=== PATIENT | female | born 1930 | race Caucasian/White ===

== ENCOUNTER 2017-09-28 16:00 | Outpatient (CLI) | payer MEDICARE, OTHER | END 2017-09-28 16:01 | disposition home or self-care (01) | LOC: BICMAMMO 16:00 | PROVIDERS: ATTEND Internal Medicine | DX: Z12.31 Encounter for screening mammogram for malignant neoplasm of breast (principal) | CPT/HCPCS: 77063 ==

== ENCOUNTER 2017-11-08 20:29 | Emergency (ER) | payer MEDICARE ==
--- NOTE | 2017-11-08 21:12 | RAD ---
CHEST TWO VIEWS: History: Cough. Comparison: 06-10-17 FINDINGS: Lungs are clear. No pneumothorax or effusion. Cardiac silhouette and mediastinal contour is within no rmal limits. Mild reversed S-shaped scoliosis of the thoracic spine. IMPRESSION: No acute intrathoracic abnormality. POS: [facility] [place]
== END 2017-11-08 21:38 | disposition home or self-care (01) ==
LOC: SCSER 20:29
DX: J32.9 Chronic sinusitis, unspecified (principal); K51.90 Ulcerative colitis, unspecified, without complications; K21.9 Gastro-esophageal reflux disease without esophagitis; I10 Essential (primary) hypertension; M19.90 Unspecified osteoarthritis, unspecified site; F41.9 Anxiety disorder, unspecified
CPT/HCPCS: 71046

== ENCOUNTER 2018-02-12 20:28 | Emergency (ER) | payer MEDICARE ==
[2018-02-12 21:00] LABS: #Monocytes 0.4 thou/uL (0.11-0.59); #Neutrophils 11.2 thou/uL (1.40-6.50); %Basophils 0.2 % (0.0-1.0); %Eosinophils 0.1 % (0.0-10.0); %Lymphocytes 14.4 % (21.0-51.0); %Monocytes 2.8 % (0.0-10.0); %Neutrophils 82.5 % (42.0-75.0); Hemoglobin 11.6 g/dL (12.0-16.0); Mean Corpuscular HGB CONC 33.6 g/dL (32.0-36.0); Mean Corpuscular Hemoglobin 30.2 pg (27.0-31.0); Mean Corpuscular Volume 89.9 fl (81.0-99.0); Mean Platelet Volume 7.5 fL (7.4-10.4); Platelet Count 196 thou/uL (130-400); RBC Distribution Width 14.4 % (11.5-14.5); Red Blood Cell (RBC) Count 3.83 mill/uL (4.20-5.40); White Blood Cell (WBC) Count 13.6 thou/uL (4.8-10.8)
[2018-02-12 21:16] LABS: ALT (SGPT) 27 U/L (8-55); AST (SGOT) 16 U/L (5-34); Albumin 3.1 g/dL (3.4-4.8); Alkaline Phosphatase 94 U/L (40-150); Anion Gap 15 mmol/L (10-20); BUN (Urea Nitrogen) 31 mg/dL (9.8-20.1); Bilirubin, Total 0.3 mg/dL (0.2-1.2); CK (CPK) 72 U/L (29-168); CKMB 1.3 ng/mL (0-6.6); Calc. Creatinine Clearance 0 mL/min (70-130); Calcium 8.7 mg/dL (7.8-10.44); Carbon Dioxide 24 mmol/L (23-31); Chloride 105 mmol/L (98-107); Estimated GFR-MDRD 44; Globulin 2.9 g/dL (2.4-3.5); Glucose 129 mg/dL (83-110); Lipase 14 U/L (8-78); Potassium 4.1 mmol/L (3.5-5.1); Sodium 140 mmol/L (136-145); Troponin I 0.017 ng/mL (< 0.028)
--- NOTE | 2018-02-12 21:16 | RAD ---
PORTABLE AP CHEST X-RAY 02/12/18 HISTORY: Dyspnea. Patient stopped Lasix two weeks ago due to bleeding. Patient now has shortness of breath and weakness. COMPARISON: 11/08/17. FINDINGS: The cardiac silhouette and pulmonary vasculature are within normal limits for the portable technique of the study. There is suggestion of slight blunting of each lateral costophrenic angle. This may be related to the shallow depth of inspiration and overlying soft tissue density as opposed to tiny bila teral pleural effusions. Vascular calcifications seen in the thoracic aorta. Degenerative changes are noted in the spine. No other interval change. IMPRESSION: Question of tiny bilateral pleural effusions, although this could be attributable to shallow depth of inspiration and overlying soft tissue density. 1. POS: [facility]
[2018-02-12 21:54] LABS: Bilirubin Negative (Negative); Blood, Urine Trace (Negative); Clarity Clear (Clear); Glucose, Urine (Dipstick) Negative (Negative); Leukocyte Negative (Negative); Nitrite Negative (Negative); Protein, Urine (Dipstick) 100 mg/dL (Neg-Trace); Urobilinogen 0.2 mg/dL (0.2-1.0); pH, Urine 5.5 (5.0-9.0)
[2018-02-12 21:55] LABS: Specific Gravity, Urine 1.028 (1.002-1.036)
[2018-02-12 22:03] LABS: Bacteria/HPF 1+ HPF (None Seen); RBC/HPF 0-3 HPF (0-3); Squamous Epithelial 0-3 HPF (0-3); WBC/HPF None Seen HPF (0-3)
[2018-02-12] MEDS ORDERED: Furosemide 40 MG/4 ML VIAL ONE (22:08)
--- NOTE | 2018-03-20 22:14 | EKG ---
Test Reason : TACHY Blood Pressure : / mmHG Vent. Rate : 092 BPM Atrial Rate : 092 BPM P-R Int : 150 ms QRS Dur : 080 ms QT Int : 364 ms P-R-T Axes : 028 -12 006 degrees QTc Int : 450 ms Normal sinus rhythm with sinus arrhythmia Voltage criteria for left ventricular hypertrophy Inferior infarct , age undetermined Abnormal ECG Confirmed by ADIEL VILLAGOMEZ D.O. ([id number]), field map editor REY HERNANDEZ ([id number]) on 03/20/2018 10:13:36 PM Referred By: Confirmed By:ADIEL VILLAGOMEZ D.O.
== END 2018-02-12 22:39 | disposition home or self-care (01) ==
LOC: SCSER 20:28
DX: R60.0 Localized edema (principal); K21.9 Gastro-esophageal reflux disease without esophagitis; I10 Essential (primary) hypertension; F41.9 Anxiety disorder, unspecified; Z79.899 Other long term (current) drug therapy; Z79.82 Long term (current) use of aspirin
CPT/HCPCS: 51701; 71045; 80053; 81003; 81015; 82553; 83690; 83880; 84484; 85025; 93005; 96374; J1940

== ENCOUNTER 2018-02-18 21:06 | Inpatient (IN) | payer MEDICARE ==
[~2018-02-18 21:06] MED LIST: ISOVUE-370 76%-LOCM 1 ML ONE
[2018-02-18 21:39] LABS: #Lymphocytes 1.5 thou/uL (1.20-3.40); #Monocytes 0.3 thou/uL (0.11-0.59); #Neutrophils 5.6 thou/uL (1.40-6.50); %Eosinophils 0.5 % (0.0-10.0); %Lymphocytes 19.9 % (21.0-51.0); %Monocytes 3.5 % (0.0-10.0); %Neutrophils 76.2 % (42.0-75.0); Hemoglobin 11.4 g/dL (12.0-16.0); Mean Corpuscular Hemoglobin 30.7 pg (27.0-31.0); Mean Corpuscular Volume 93.2 fl (81.0-99.0); Mean Platelet Volume 7.2 fL (7.4-10.4); Platelet Count 189 thou/uL (130-400); RBC Distribution Width 14.4 % (11.5-14.5); Red Blood Cell (RBC) Count 3.71 mill/uL (4.20-5.40); White Blood Cell (WBC) Count 7.4 thou/uL (4.8-10.8)
[2018-02-18 21:58] LABS: Lactic Acid 2.2 mmol/L (0.5-2.2)
[2018-02-18 22:02] LABS: ALT (SGPT) 16 U/L (8-55); AST (SGOT) 13 U/L (5-34); Alkaline Phosphatase 90 U/L (40-150); Anion Gap 14 mmol/L (10-20); BUN (Urea Nitrogen) 33 mg/dL (9.8-20.1); Bilirubin, Total 0.4 mg/dL (0.2-1.2); CK (CPK) 49 U/L (29-168); Calc. Creatinine Clearance 0 mL/min (70-130); Calcium 8.6 mg/dL (7.8-10.44); Carbon Dioxide 27 mmol/L (23-31); Chloride 104 mmol/L (98-107); Estimated GFR-MDRD 42; Globulin 2.6 g/dL (2.4-3.5); Glucose 149 mg/dL (83-110); Potassium 3.8 mmol/L (3.5-5.1); Protein, Total 5.6 g/dL (6.0-8.3); Sodium 141 mmol/L (136-145)
[2018-02-18 22:03] LABS: CKMB 0.8 ng/mL (0-6.6); Troponin I 0.011 ng/mL (< 0.028)
[2018-02-18 22:22] LABS: INR-International Normal Ratio 1.1; Prothrombin Time 14.4 SEC (12.0-14.7)
--- NOTE | 2018-02-18 22:27 | RAD ---
CHEST ONE VIEW: 02/18/18 COMPARISON: 02/12/18. HISTORY: Shortness of breath. FINDINGS: Normal cardiac silhouette. Atherosclerosis of the aorta. Diminished lung volumes, likely due to a poo r inspiratory effort. Chronic changes in the lung parenchyma. No consolidation or masses. No pneumoth orax or osseous abnormalities. IMPRESSION: 1. Diminished lung volumes likely due to poor inspiratory effort. 2. Chronic changes in the lung parenchyma. POS: [facility]
[2018-02-18 22:37] LABS: D-Dimer Test 6.61 *mcg/mL (0.27-0.43)
--- NOTE | 2018-02-18 23:56 | CT ---
CT ANGIOGRAM OF THE CHEST 02/18/18 HISTORY: Ulcerative colitis. The patient is fatigued. Shortness of breath. COMPARISON: None. TECHNIQUE: CT angiogram of the chest is performed in the axial plane. Three dimensional reformatted images are s ubmitted for interpretation. FINDINGS: Trachea and central bronchi are patent. Patchy interstitial opacities throughout the lung parenchyma likely representing chronic change. Focal alveolar infiltrate in the left upper lobe is noted. No con solidation with air bronchograms. No pleural effusion or pneumothorax. No mediastinal mass, lymphadenopathy, or hematoma. Heart size is normal. No significant pericardial f luid. Limited evaluation of the aorta due to inadequate contrast opacification. There is atherosclero sis of the aorta. Upper solid organs are unremarkable. Adequate contrast opacification of the pulmonary arterial system to the level of the segmental arteri es. No filling defect to suggest thromboembolism. No lytic or blastic lesions in the osseous structures. IMPRESSION: 1. No evidence of pulmonary artery embolism to the level of the segmental arteries. 2. Left upper lobe infiltrate. POS: [facility]
--- NOTE | 2018-02-19 00:05 | CT ---
ABDOMEN CT WITH CONTRAST PELVIC CT WITH CONTRAST 02/18/18 COMPARISON: 01/24/17 HISTORY: Ulcerative colitis, abdominal pain. TECHNIQUE: Abdomen and pelvic CT are performed with IV contrast. Enteric contrast was not administered. Coronal reformatted images are submitted for interpretation. FINDINGS: ABDOMEN CT: Intra and extrahepatic portal vein is patent. The liver, spleen, pancreas, and adrenal glands have ap propriate enhancement. Gallbladder is unremarkable. No gastrohepatic, retrocrural or periportal lymphadenopathy. Symmetric attenuation of the psoas muscles. Abdominal aorta has a normal caliber. No periaortic fat s tranding. Symmetric enhancement of the kidneys. Bilaterally, no obstructive uropathy. No mesenteric mass, lymphadenopathy, free air or free fluid. Limited evaluation of the alimentary canal due to lack of oral contrast opacification. Grossly, the g astric mucosa, duodenum and multiple normal caliber small bowel loops are noted. Ileocecal junction i s normal. Normal caliber appendix. Scattered fecal material in a nondistended, nondilated colon. Ther e is mild mucosal thickening involving the descending colon without active inflammation. There are di verticula in the sigmoid colon. There is a small focus of hypoattenuation with a punctate area focus of air in the mesentery adjacent to the mid sigmoid colon measuring 1.7 x 1.6 cm. Minimal stranding o f the adjacent fat. Possibility of a focal area of diverticulitis with a contained perforation/early abscess cannot be excluded. PELVIC CT: Limited evaluation due to beam attenuation artifact from a left hip arthroplasty. Grossly, urinary bl adder and adnexal structures including the uterus are unremarkable. Chronic changes in the lumbar spine are noted. IMPRESSION: Possible focus of diverticulitis with small infected fluid collection/early forming abscess adjacent to the proximal sigmoid colon. POS: [facility]
[2018-02-19] MEDS ORDERED: Vancomycin HCl 1 GM in Premix Bag 1 BAG IVPB SCH (00:15)
[2018-02-19 02:01] VITALS: BMI 23.6
[2018-02-19] MEDS ORDERED: Acetaminophen 325 MG TAB PO PRN (02:30)
[2018-02-19] MEDS ORDERED: Ondansetron ODT 4 MG TAB SL PRN (02:30)
[2018-02-19] MEDS ORDERED: Sodium Chloride 0.9% 1,000 ML IV SCH (02:30)
[2018-02-19] MEDS ORDERED: Ondansetron HCl/PF 4 MG/2 ML Vial IVP PRN ×2 (02:30→10:15)
[2018-02-19] MEDS ORDERED: Cefepime 2 GM, Syringe 2.5 ML in Sodium Chloride 0.9% 10 ML SLOW IVP SCH (02:45)
[2018-02-19] MEDS ORDERED: metroNIDAZOLE 500 MG in Premix Bag 1 BAG IVPB SCH (02:45)
[2018-02-19] MEDS ORDERED: Prevnar 13-Val Conj/PF 0.5 ML SYRINGE IM ONE (09:00)
[2018-02-19] MEDS ORDERED: Acetaminophen 650 MG Suppository PR PRN (10:15)
[2018-02-19] MEDS ORDERED: HumaLOG 300 UNITS/3 ML VIAL SC PRN (10:15)
[2018-02-19] MEDS ORDERED: Dextrose 5% in Water 1,000 ML IV PRN (10:15)
[2018-02-19] MEDS ORDERED: Dextrose 50% Abboject 50 ML SYRINGE SLOW IVP PRN (10:15)
[2018-02-19] MEDS: Sodium Chloride 0.9% 1,000 ML IV SCH ×2 (10:53→22:45)
[2018-02-19] MEDS: MEROPENEM 1 GM/50 ML 1 GM in Premix Bag 1 BAG IVPB SCH ×2 (12:40→20:58)
--- NOTE | 2018-02-19 13:51 | ULT ---
BILATERAL LOWER EXTREMITY VENOUS ULTRASOUND WITH DOPPLER: HISTORY: Swelling. Edema. Pain. COMPARISON: None. TECHNIQUE: Adair scale, color flow, Doppler imaging, with spectral waveform analysis was performed of the left an d right lower extremity venous system. FINDINGS: There is lack of complete compressibility involving the right common femoral vein. There is evidence of thrombus. The femoral vein, popliteal vein, posterior tibial vein, greater saphenous vein, and p ulmonary vasculature have patency, compressibility, and presence of flow. LEFT LOWER EXTREMITY: There is compressibility, presence of flow, and augmentation in the common femoral vein, femoral vein , and popliteal vein. There is flow in the greater saphenous vein, profunda vein, and posterior tibi al vein. IMPRESSION: Thrombus in the right common femoral vein. Findings on the study were conveyed to the patient's nurs Shanda solo by the edge inker heels upon completion of the examination 02/19/18 at 12:03 p.m. CODE PEREZ POS: [facility]
--- NOTE | 2018-02-19 14:52 | CON ---
DATE OF CONSULTATION: 02/19/2018 GENERAL SURGERY CONSULTATION CHIEF COMPLAINT: Lower abdominal pain. HISTORY: This is an 87-year-old female with a history of ulcerative colitis who has been on predniso ne for a while and has now been switched to Humira. She was having some complaints of lower abdomina l pain and was found to be tachycardic and brought to the hospital. CT scan showed a small focus of air next to the sigmoid colon. PAST MEDICAL HISTORY: Significant for ulcerative colitis, gastroesophageal reflux, hypertension. PAST SURGICAL HISTORY: Tonsil and adenoidectomy, brain aneurysm, clipped foot surgery, bilateral tot al knee replacement, left hip surgery. ALLERGIES: PENICILLIN. MEDICATIONS: Include Humira. PHYSICAL EXAMINATION: VITAL SIGNS: Temperature 97.9, pulse 71, blood pressure 127/74. GENERAL: She is awake, but somewhat confused. HEENT: Otherwise, unremarkable. LUNGS: Clear. HEART: Regular rate and rhythm. ABDOMEN: Soft, nondistended, very mild tenderness in left lower quadrant. EXTREMITIES: Unremarkable. LABORATORY DATA AND IMAGING DATA: White count 7.4, hemoglobin and hematocrit 11 and 34, and platelet count 189. Electrolytes show an elevated glucose of 149, creatinine 1.2, BUN at 33. CT scan shows some mild mucosal thickening of the descending colon, diverticulosis, small focus of air with some st randing 1.7 cm near the sigmoid colon consistent with diverticulitis. ASSESSMENT: Diverticulitis, the pocket is too small to drain. PLAN: GI consult, IV antibiotics, repeat CT in a few days.
[2018-02-19] MEDS ORDERED: Docusate 100 MG CAP PO SCH (21:00)
[2018-02-19] MEDS ORDERED: Enoxaparin Sodium 80 MG/0.8 ML SYRINGE SC SCH (21:00)
--- NOTE | 2018-02-19 21:29 | HP ---
REASON FOR ADMISSION: Possible abscess with sigmoid diverticulitis versus ulcerative colitis flareup, severe deconditioning. HISTORY OF PRESENTING ILLNESS: Please note majority of this history is obtained by talking to . Donald Arzate, son. Patient has fairly advanced dementia and does not know the reason why she is in the hospital. Per son, the patient has had history of ulcerative colitis diagnosed in 05/2017. She has had colonoscopy with confirmed biopsies by Dr. Adair then. She was initially on Apriso which worked for 5 months or so, but then started to have a flare up. On 01/09/2018 of this year, patient had a repeat colonoscopy and was found to have had ulcerative colitis flareup. She is on a tapering prednisone from then on. She is currently on 20 mg from this week. She is also on Humira from last 3 weeks for the same. From last 2 weeks, patient has started to have brown stools prior to which she was having mucoid with blood-stained stools per son. From last 1 week, she has been progressively getting deconditioned and had visited the emergency room. She had a chest x-ray and CBC done, which were apparently normal. She was thought to have fluid overload and was placed on Lasix daily. Prior to which she was on alternate Lasix. On Thursday, patient went to see Dr. García and had thyroid test done, which were within normal limits. The patient has tachycardia with heart rates going up to 130s with minimal ambulation with a rolling walker at home. She has been working with physical therapy at home. As she was progressively declining with increasing confusion, patient was brought to the emergency room. Here in the ER, she has had a CAT scan of the abdomen and pelvis done, which showed possible abscess in the proximal sigmoid colon with signs of diverticulitis on the CAT scan. She has had a CT angio of the chest done, which showed no evidence of PE, but suspicious for possible left upper lobe infiltrate. PAST MEDICAL AND SURGICAL HISTORY: History of ulcerative colitis diagnosed in May of last year, currently on Humira and prednisone taper. Bilateral knee replacement, left hip replacement, hypotension, GERD, osteoarthritis, history of brain aneurysm clipped, tonsillectomy, dementia, and allergic rhinitis. PERSONAL HISTORY: Does not abuse alcohol or drugs. No history of smoking. Lives with her family. FAMILY HISTORY: No history of premature coronary artery disease or stroke. ALLERGIES: PENICILLIN. CURRENT MEDICATIONS: Patient is on prednisone 20 mg daily, Protonix 40 mg daily , Lasix 20 mg daily, and Humira shots. REVIEW OF SYSTEMS: Cannot be obtained as patient is not cognitively intact. PHYSICAL EXAMINATION: GENERAL: The patient is an 87-year-old female who is currently not in any acute distress. VITAL SIGNS: Blood pressure 126/66, pulse 88 per minute, respiratory rate 20 per minute, temperature 97.4 degrees Fahrenheit, saturating 97% on room air. NECK: Supple, no elevated JVD. HEENT: Eyes, extraocular muscles intact. Pupils reacting to light. Oral cavity, mucous membranes are moist. No exudates or congestion. CARDIOVASCULAR: S1, S2 heard. Regular rhythm. RESPIRATORY: Air entry 1+ bilateral. No rales or rhonchi. ABDOMEN: Soft, bowel sounds heard. No tenderness. The patient has voluntary guarding, but no rigidity or rebound. EXTREMITIES: There is peripheral edema with tenderness in both lower extremities. Please note, patient is extremely sensitive to touch anywhere on her body, but worse in the lower extremities: Peripheral pulses are 1+ bilateral, no ischemic ulcerations or gangrene. CENTRAL NERVOUS SYSTEM: No gross focal signs seen. Patient is seen moving all extremities. PSYCHIATRIC: Cannot be accurately assessed as she is cognitively not intact. LABORATORY AND X-RAY FINDINGS: White count of 7, H&H 11 and 34, platelet count 189, MCV is 93 with 76% neutrophils. PT, INR, PTT within normal limits. D- dimer was high at 6.6, BUN 33, creatinine 1.2, glucose 149. Liver enzymes are within normal limits. Albumin is 3.0. Cortisol levels were 7.90. CT of the abdomen and pelvis done showed possible focus of diverticulitis with small infected fluid collection or early abscess measuring 1.7 x 1.6 cm in the proximal sigmoid colon area. CT angio chest done showed no evidence of PE. There was a suspicion for possible left upper lobe infiltrate. Ultrasound venous Doppler done showed thrombus in the right common femoral vein. No DVT in the left lower extremity. EKG done showed normal sinus rhythm at 92 beats per minute. There are signs of LVH with likely old Q-waves in lead II, III, AVF. CLINICAL IMPRESSION AND PLAN: Patient will be admitted to medical floor for possible left sigmoid colon area abscess, which is around 1 cm. This is not amenable for CT guided aspiration. Patient also has DVT in the right lower extremity. She will be placed on meropenem and kept n.p.o. for 24 hours. We will also add vancomycin p.o. for possible suspicion of left upper lobe infiltrate, which is not very clear at present. Clinically, patient has no signs of cough or expectoration at present. She has been gently diuresed with Lasix. She still has peripheral edema and will be cautious with IV hydration in view of her being n.p.o. now. I have discussed her findings with Dr. Arrington. She will also have consultation with Dr. Adair, her firearms assembly supervisor. Ms. Bennett will be on Lovenox 70 mg subcu q.12 hourly, keeping in mind her renal function. She has mild acute kidney injury and will be closely monitored. Likely this will get better with gentle hydration. She has been on Lasix hence the rising BUN. I have given complete updates to Mr. Huey Bennett, patient's son. Patient is FULL CODE and I have discussed this with her son. We will continue to closely monitor her. We will also obtain PT, OT evaluations and likely rehabilitation or swing bed based on her progress. BREONNAD
[2018-02-20] MEDS: Vancomycin HCl 1 GM in Premix Bag 1 BAG IVPB SCH (01:46)
--- NOTE | 2018-02-20 04:05 | CON ---
DATE OF CONSULTATION: 02/19/2018 REASON FOR CONSULTATION: Diverticulitis, ulcerative colitis. CONSULTING PHYSICIAN: Steve Casillas M.D. HISTORY OF PRESENT ILLNESS: The patient is an 87-year-old female with past medical history of GERD, hypertension, duodenal ulcer, osteoarthritis, CKD stage 3, advanced dementia, and recent diagnosis of ulcerative colitis, presenting with complaints of abdominal pain. During the course of the interview, the patient was not able to contribute to the history and currently does not know why she was admitted to the hospital. The majority of the information was then subsequently obtained via chart review from both inpatient and outpatient records due to no family being present at bedside. Per outpatient records, the patient was diagnosed initially with ulcerative colitis in 05/2017 when she underwent a colonoscopy with biopsies confirming the diagnosis. She was initially placed on 5-ASA therapy including Apriso with initial clinical response. However, in 12/2017, she began to have increased hematochezia, raising concern for possible flare or nonresponse to the current therapy. She subsequently underwent a repeat colonoscopy in 12/2017, which showed extensive disease extending from the anus to the splenic flexure with sparing of the transverse colon, ascending colon, and cecum. After conferring with the patient's medical power of business attorney, she was subsequently placed on prednisone 40 mg daily with plans to start her on Humira as part of biologic therapy related to ulcerative colitis. She is currently on week 3 of Humira therapy and is currently on a prednisone taper. She initially showed response with medication having more brown stools and more solid stools per the patient' s son. However, over the last week, she had been getting progressively worse and deconditioned [place], which prompted admission to the ER for evaluation. While being worked up as an outpatient for this physical deconditioning, she was noted to have a significantly increased heart rate, which prompted admission to the [facility] where she had a CAT scan of the abdomen and pelvis done showing possible abscess in the proximal sigmoid colon consistent with diverticulitis. Currently, she states that she is doing well without any complaints or problems, although she is only alert and oriented x1. REVIEW OF SYSTEMS: Review of systems was obtained, but is unreliable at this time given the patient's advanced dementia. PAST MEDICAL HISTORY: As per HPI. PAST SURGICAL HISTORY: Bilateral knee replacement, left hip replacement, brain aneurysm clip, tonsillectomy, and multiple colonoscopies. FAMILY HISTORY: No GI malignancy or inflammatory bowel disease. OUTPATIENT MEDICATIONS: Reviewed. ALLERGIES: PENICILLIN. PHYSICAL EXAMINATION: VITAL SIGNS: Temperature 98.2, pulse 90, blood pressure 129/67, respiratory rate 18, satting 96% on room air. GENERAL: The patient is lying in bed, in no acute distress, alert and oriented x1. NECK: Supple. No JVD noted. CARDIOVASCULAR: Regular rate and rhythm with no discernible murmurs, gallops, or rubs. RESPIRATORY: Clear to auscultation bilaterally with no discernible wheezes or rales. ABDOMEN: Normoactive bowel sounds, soft, nondistended. Tenderness to palpation in the lower abdominal quadrants. EXTREMITIES: No cyanosis, clubbing, or edema. LABORATORY DATA: CBC with a white blood cell count of 7.4, hemoglobin of 11.4, hematocrit 34.6, and platelets 189. INR 1.1. Chemistry with a sodium of 141, potassium 3.8, chloride 104, carbon dioxide 27, BUN 33, creatinine 1.22, glucose 149. AST 13, ALT 16, alkaline phosphatase 90. Total bilirubin 0.4. IMAGING DATA: CT abdomen and pelvis obtained on 01/18/2018 showed scattered fecal material in a nondistended, nondilated colon; however, there was mild mucosal thickening involving the descending colon without active inflammation. There was also a small focus of hypoattenuation with a punctate focus of air in the mesentery adjacent to the mid sigmoid colon measuring 1.7 x 1.6 cm. There was also minimal stranding of the adjacent fat. Per the Radiology read, it was concerning for a possible focus of diverticulitis with contained perforation/ early abscess. ASSESSMENT AND PLAN: The patient is an 87-year-old female with past medical history of gastroesophageal reflux disease, hypertension, duodenal ulcer, osteoarthritis, chronic kidney disease stage 3, advanced dementia, and ulcerative colitis, recently placed on steroid taper and biologic therapy, presenting with acute perforated diverticulitis. Diverticulitis. The patient is presenting with a diagnosis of ulcerative colitis within the last 6-9 months that was initially seen on colonoscopy in 2016 and biopsies confirmed the diagnosis. She was initially placed on 5-ASA therapy and responded well initially, but more recently had been having increased hematochezia and concerning for flare or lack of further response. She subsequently underwent a repeat colonoscopy in 12/2017, which showed active disease from the anus to the splenic flexure prompting her to be placed on steroid therapy as well as biologic therapy. Shortly after being placed on biologic therapy, she had increased physical deconditioning, concerning for underlying illness, and was evaluated in the ER. She was noted to be significantly tachycardic at that point in time with a CT of abdomen and pelvis showing a contained perforation around the sigmoid colon consistent with diverticulitis. At this point, the likelihood of the ulcerative colitis causing diverticulitis is less likely primarily due to the nature of ulcerative colitis not involving transmural inflammation like Crohn disease does; however, with the underlying condition of diverticulosis, the increased inflammatory state generated by ulcerative colitis could potentially contribute to what is going on now. At this point, she is relatively asymptomatic; however, she has tenderness to palpation on physical examination and increase towards active inflammation and infection. RECOMMENDATIONS: 1. Would continue IV antibiotics as you are doing for contained perforated diverticulitis. 2. Would maintain n.p.o. status for at least the next 24 hours and then considering advancing diet as tolerated. 3. Would hold on any endoscopic evaluation at this time given the increased risk of perforation. 4. Pain control per primary team. 5. Agree with General Surgery consultation for evaluation of the perforation and possible surgical correction. 6. Would continue steroids for now given the taper as an outpatient and risk of adrenal crisis with abrupt withdrawal. I will order methylprednisolone equivalent. We will continue to follow. Please call with any additional questions. NICOLAS
[2018-02-20 04:21] LABS: #Basophils 0.1 thou/uL (0.0-0.2); #Eosinphils 0.1 thou/uL (0.0-0.7); #Lymphocytes 2.5 thou/uL (1.20-3.40); #Monocytes 0.6 thou/uL (0.11-0.59); %Basophils 1.4 % (0.0-1.0); %Eosinophils 1.9 % (0.0-10.0); %Lymphocytes 39.8 % (21.0-51.0); %Monocytes 9.1 % (0.0-10.0); %Neutrophils 47.8 % (42.0-75.0); Mean Corpuscular HGB CONC 33.2 g/dL (32.0-36.0); Mean Corpuscular Volume 93.4 fl (81.0-99.0); Platelet Count 170 thou/uL (130-400); RBC Distribution Width 14.3 % (11.5-14.5); Red Blood Cell (RBC) Count 3.55 mill/uL (4.20-5.40); White Blood Cell (WBC) Count 6.4 thou/uL (4.8-10.8)
[2018-02-20] MEDS: MEROPENEM 1 GM/50 ML 1 GM in Premix Bag 1 BAG IVPB SCH ×3 (04:32→20:10)
[2018-02-20 04:56] LABS: Anion Gap 8 mmol/L (10-20); BUN (Urea Nitrogen) 17 mg/dL (9.8-20.1); Calc. Creatinine Clearance 39 mL/min (70-130); Calcium 7.9 mg/dL (7.8-10.44); Carbon Dioxide 28 mmol/L (23-31); Chloride 105 mmol/L (98-107); Estimated GFR-MDRD 50; Glucose 89 mg/dL (83-110); Potassium 3.3 mmol/L (3.5-5.1); Sodium 138 mmol/L (136-145)
[2018-02-20] MEDS: Sodium Chloride 0.9% 1,000 ML IV SCH ×3 (06:50→19:26)
[2018-02-20] MEDS: Famotidine 40 MG/4 ML VIAL SLOW IVP SCH (09:00)
[2018-02-20] MEDS ORDERED: Polyethylene Glycol 3350 17 GM Packet PO SCH (09:00)
[2018-02-20] MEDS ORDERED: Enoxaparin Sodium 30 MG/0.3 ML SYRINGE SC SCH (09:00)
--- NOTE | 2018-02-20 11:33 | PDOC.PN ---
- Subjective Encounter Start Date: 02/20/18 Encounter Start Time: 10:45 Subjective: awake, not oriented -: no c/o specific issues, moans for touch anywhere - Objective Resuscitation Status: Resuscitation Status FULL:Full Resuscitation MAR Reviewed: Yes Vital Signs & Weight: Vital Signs (12 hours) Temp Pulse Resp BP Pulse Ox 02/20/18 08:00 100.2 F H 92 18 96 02/20/18 07:46 100.2 F H 92 18 129/76 96 02/20/18 04:00 98.5 F 81 18 129/67 97 02/20/18 00:00 98.4 F 93 20 130/63 96 Weight Admit Weight 146 lb Weight 146 lb I&O: 02/19/18 02/20/18 02/21/18 06:59 06:59 06:59 Intake Total 0 Balance 0 Result Diagrams: 02/20/18 04:03 02/20/18 04:03 Additional Labs: Accuchecks 02/20/18 02/19/18 02/19/18 04:28 20:33 16:06 POC Glucose 97 91 90 02/19/18 11:22 POC Glucose 110 Phys Exam - Physical Examination HEENT: PERRLA, moist MMs Neck: no JVD, supple Respiratory: no wheezing, no rales Cardiovascular: RRR, no significant murmur Gastrointestinal: soft, no distention, positive bowel sounds Musculoskeletal: pulses present, edema present Neurological: non-focal, moves all 4 limbs Dx/Plan (1) Abscess of sigmoid colon Code(s): K63.0 - ABSCESS OF INTESTINE Status: Acute (2) DVT (deep venous thrombosis) Code(s): I82.409 - ACUTE EMBOLISM AND THOMBOS UNSP DEEP VN UNSP LOWER EXTREMITY Status: Acute Qualifiers: DVT location: lower extremity Affected thrombotic vein of extremity: femoral Chronicity: acute Laterality: right Qualified Code(s): I82.411 - Acute embolism and thrombosis of right femoral vein (3) H/O ulcerative colitis Code(s): Z87.19 - PERSONAL HISTORY OF OTHER DISEASES OF THE DIGESTIVE SYSTEM Status: Chronic (4) Dementia Code(s): F03.90 - UNSPECIFIED DEMENTIA WITHOUT BEHAVIORAL DISTURBANCE Status: Chronic Qualifiers: Dementia type: unspecified type Dementia behavioral disturbance: without behavioral disturbance Qualified Code(s): F03.90 - Unspecified dementia without behavioral disturbance (5) GERD (gastroesophageal reflux disease) Code(s): K21.9 - GASTRO-ESOPHAGEAL REFLUX DISEASE WITHOUT ESOPHAGITIS Status: Chronic Qualifiers: Esophagitis presence: esophagitis presence not specified Qualified Code(s) : K21.9 - Gastro-esophageal reflux disease without esophagitis (6) Hypertension Code(s): I10 - ESSENTIAL (PRIMARY) HYPERTENSION Status: Chronic Qualifiers: Hypertension type: essential hypertension Qualified Code(s): I10 - Essential (primary) hypertension (7) Osteoarthritis Code(s): M19.90 - UNSPECIFIED OSTEOARTHRITIS, UNSPECIFIED SITE Status: Chronic Qualifiers: Osteoarthritis location: multiple joints - Plan is on meropenem, gentle iv hydration -: advance diet per GI/surgery advice -: PT to mobilize as tolerated, oob to chair -: will dc vanc if cultures are -ve -: on full dose lovenox, solumedrol for UC flare * . Review of Systems - Medications/Allergies Allergies/Adverse Reactions: Allergies Allergy/AdvReac Type Severity Reaction Status Date / Time Penicillins Allergy Verified 01/15/15 15:37 Medications: Current Medications Acetaminophen (Tylenol) 650 mg FL Q4H PRN PRN Reason: Headache/Fever or Pain Acetaminophen (Tylenol) 650 mg PO Q4H PRN PRN Reason: Headache/Fever or Pain Dextrose/Water (Dextrose 50%) 25 gm SLOW IVP PRN PRN PRN Reason: Hypoglycemia Enoxaparin Sodium (Lovenox) 70 mg SC 2100 [facility] Last Admin: 02/19/18 20:57 Dose: 70 mg Famotidine (Pepcid) 20 mg SLOW IVP DAILY [facility] Last Admin: 02/20/18 09:00 Dose: 20 mg Glucagon (Glucagon) 1 mg IM PRN PRN PRN Reason: Hypoglycemia Dextrose/Water (D5w) 1,000 mls @ 0 mls/hr IV .Q0M PRN; As Directed PRN Reason: Hypoglycemia Meropenem 1 gm/ Device 50 mls @ 100 mls/hr IVPB 0400,1200,2000 [facility] Last Admin: 02/20/18 11:12 Dose: 50 mls Sodium Chloride (Normal Saline 0.9%) 1,000 mls @ 80 mls/hr IV .[id number] [facility] Last Admin: 02/20/18 06:50 Dose: 1,000 mls Vancomycin HCl 1 gm/ Device 200 mls @ 200 mls/hr IVPB Q24HR [facility] Last Admin: 02/20/18 01:46 Dose: 200 mls Insulin Human Lispro (Humalog) 0 units SC .MILD SLIDING SCALE PRN PRN Reason: Mild Correctional Scale Methylprednisolone Sodium Succinate (Solu-Medrol) 20 mg IVP DAILY [facility] Last Admin: 02/20/18 09:00 Dose: 20 mg Ondansetron HCl (Zofran) 4 mg IVP Q6H PRN PRN Reason: Nausea/Vomiting
[2018-02-20] MEDS ORDERED: Acetaminophen 1,000 MG in Premix Bag 1 BAG IVPB PRN (13:12)
--- NOTE | 2018-02-20 15:00 | PRG ---
DATE OF SERVICE: 02/20/2018 REASON FOR CONSULTATION: Diverticulitis, ulcerative colitis. OBJECTIVE: The patient, per nursing staff, there was no acute events or problems overnight. However , the patient does moan and complain of lower abdominal pain. Otherwise, she denies any nausea, vomi ting, fevers, chills or GI bleeding. OBJECTIVE: VITAL SIGNS: Temperature 100, pulse 96, blood pressure 132/79, respiratory rate 16, and satting 95% on room air. GENERAL: Patient is lying in bed, sleeping, in no acute distress, but upon awakening did moan with s ome complaints of lower abdominal pain. Alert and oriented x1. CARDIOVASCULAR: Regular rate and rhythm. RESPIRATORY: Clear to auscultation bilaterally. ABDOMEN: Normoactive bowel sounds, soft, and nondistended. Tenderness to palpation in the lower abd ominal quadrants. EXTREMITIES: No cyanosis, clubbing or edema. LABORATORY DATA: CBC with white blood cell count of 6.4, hemoglobin 11, hematocrit 33.1, platelets 1 70. Chemistry with glucose of 97. IMAGING DATA: No current GI imaging is available for review. ASSESSMENT AND PLAN: 1. The patient is an 87-year-old female with past medical history of gastroesophageal reflux disease , hypertension, duodenal ulcer, osteoarthritis, and chronic kidney disease stage 3, advanced dementia and ulcerative colitis presenting with acute perforated diverticulitis. 2. Diverticulitis. Patient was initially diagnosed with ulcerative colitis approximately 8-9 months ago with findings seen on colonoscopy and biopsies consistent with diagnosis. She was ultimately pl aced on 5-ASA therapy and responded well initially, but more recently had a repeat colonoscopy showin g active disease, prompting Dr. Adair to put her on Humira as an increase in her therapy; however, aft er being placed on biologic therapy, she had increase in her physical deconditioning and inability to move prompting evaluation by her primary care physician. She was ultimately sent to the cardiologis t where she was noted to be significantly tachycardic with recommendations for evaluation in the ER. While in the ER, she had imaging findings consistent with perforated diverticulitis and was admitted to the hospital. She is now on hospital day #2 and has been tolerating IV antibiotics for perforate d diverticulitis. General Surgery Service has evaluated the patient with no recommendations for nelly winkler of the fluid collection adjacent to her sigmoid colon nor any surgical resection is planned at t his time. At this time, it is unclear if this was diverticulitis outside of ulcerative colitis or wh ether or not ulcerative colitis contributed to the current clinical situation (although ulcerative co litis does not usually had transmural inflammation). RECOMMENDATIONS: 1. Would continue IV antibiotics with meropenem for both gram negative and anaerobic coverage. Vanc omycin administration is generally not needed for intra-abdominal infections. 2. Would advance the patient's diet with clear liquids. 3. Pain control per primary team. 4. We would continue steroids for now for treatment of her ulcerative colitis and prevention of adre nal crisis with abrupt withdrawal. 5. We will hold on any endoscopic evaluation at this time given the increased risk of perforation. We will continue to follow. Please call with any questions.
[2018-02-20] MEDS: Enoxaparin Sodium 80 MG/0.8 ML SYRINGE SC SCH (20:08)
[2018-02-21] MEDS: Vancomycin HCl 1 GM in Premix Bag 1 BAG IVPB SCH (00:11)
[2018-02-21] MEDS: MEROPENEM 1 GM/50 ML 1 GM in Premix Bag 1 BAG IVPB SCH ×3 (04:53→20:12)
[2018-02-21] MEDS: Enoxaparin Sodium 80 MG/0.8 ML SYRINGE SC SCH ×2 (08:24→20:26)
[2018-02-21] MEDS: Famotidine 40 MG/4 ML VIAL SLOW IVP SCH (08:25)
--- NOTE | 2018-02-21 11:45 | PDOC.PN ---
- Subjective Encounter Start Date: 02/21/18 Encounter Start Time: 11:30 Subjective: awake, is more alert -: responds to few questions -: has pain anywhere you touch, no sob - Objective Resuscitation Status: Resuscitation Status FULL:Full Resuscitation MAR Reviewed: Yes Vital Signs & Weight: Vital Signs (12 hours) Temp Pulse Resp BP Pulse Ox 02/21/18 08:00 97.4 F L 69 16 118/67 97 Weight Admit Weight 146 lb Weight 146 lb I&O: 02/20/18 02/21/18 02/22/18 06:59 06:59 06:59 Intake Total 240 Balance 240 Result Diagrams: 02/20/18 04:03 02/20/18 04:03 Additional Labs: Accuchecks 02/21/18 02/20/18 02/20/18 05:00 22:33 16:29 POC Glucose 102 94 101 02/20/18 11:44 POC Glucose 85 Phys Exam - Physical Examination HEENT: PERRLA, moist MMs Neck: no JVD, supple Respiratory: no wheezing, no rales Cardiovascular: RRR, no significant murmur Gastrointestinal: soft, no distention, positive bowel sounds Musculoskeletal: pulses present, edema present Neurological: non-focal, moves all 4 limbs Dx/Plan (1) Abscess of sigmoid colon Code(s): K63.0 - ABSCESS OF INTESTINE Status: Acute (2) DVT (deep venous thrombosis) Code(s): I82.409 - ACUTE EMBOLISM AND THOMBOS UNSP DEEP VN UNSP LOWER EXTREMITY Status: Acute Qualifiers: DVT location: lower extremity Affected thrombotic vein of extremity: femoral Chronicity: acute Laterality: right Qualified Code(s): I82.411 - Acute embolism and thrombosis of right femoral vein (3) H/O ulcerative colitis Code(s): Z87.19 - PERSONAL HISTORY OF OTHER DISEASES OF THE DIGESTIVE SYSTEM Status: Chronic (4) Dementia Code(s): F03.90 - UNSPECIFIED DEMENTIA WITHOUT BEHAVIORAL DISTURBANCE Status: Chronic Qualifiers: Dementia type: unspecified type Dementia behavioral disturbance: without behavioral disturbance Qualified Code(s): F03.90 - Unspecified dementia without behavioral disturbance (5) GERD (gastroesophageal reflux disease) Code(s): K21.9 - GASTRO-ESOPHAGEAL REFLUX DISEASE WITHOUT ESOPHAGITIS Status: Chronic Qualifiers: Esophagitis presence: esophagitis presence not specified Qualified Code(s) : K21.9 - Gastro-esophageal reflux disease without esophagitis (6) Hypertension Code(s): I10 - ESSENTIAL (PRIMARY) HYPERTENSION Status: Chronic Qualifiers: Hypertension type: essential hypertension Qualified Code(s): I10 - Essential (primary) hypertension (7) Osteoarthritis Code(s): M19.90 - UNSPECIFIED OSTEOARTHRITIS, UNSPECIFIED SITE Status: Chronic Qualifiers: Osteoarthritis location: multiple joints - Plan is on lovenox 70 q12h for dvt -: on meropenem, dc vanc...clinically no evidence of pna -: clear liq diet, may dc iv fluids if tolerating liq well -: to mobilize more with PT -: watch for bleeding * . Review of Systems - Medications/Allergies Allergies/Adverse Reactions: Allergies Allergy/AdvReac Type Severity Reaction Status Date / Time Penicillins Allergy Verified 01/15/15 15:37 Medications: Current Medications Acetaminophen (Tylenol) 650 mg OR Q4H PRN PRN Reason: Headache/Fever or Pain Acetaminophen (Tylenol) 650 mg PO Q4H PRN PRN Reason: Headache/Fever or Pain Dextrose/Water (Dextrose 50%) 25 gm SLOW IVP PRN PRN PRN Reason: Hypoglycemia Enoxaparin Sodium (Lovenox) 70 mg SC BID [facility] Last Admin: 02/21/18 08:24 Dose: 70 mg Famotidine (Pepcid) 20 mg SLOW IVP DAILY [facility] Last Admin: 02/21/18 08:25 Dose: 20 mg Glucagon (Glucagon) 1 mg IM PRN PRN PRN Reason: Hypoglycemia Dextrose/Water (D5w) 1,000 mls @ 0 mls/hr IV .Q0M PRN; As Directed PRN Reason: Hypoglycemia Meropenem 1 gm/ Device 50 mls @ 100 mls/hr IVPB 0400,1200,2000 [facility] Last Admin: 02/21/18 04:53 Dose: 50 mls Sodium Chloride (Normal Saline 0.9%) 1,000 mls @ 80 mls/hr IV .[id number] [facility] Last Admin: 02/20/18 19:26 Dose: 1,000 mls Acetaminophen 1,000 mg/ Device 100 mls @ 400 mls/hr IVPB Q6H PRN PRN Reason: .TEMP Stop: 02/21/18 13:13 Last Admin: 02/20/18 13:44 Dose: 100 mls Insulin Human Lispro (Humalog) 0 units SC .MILD SLIDING SCALE PRN PRN Reason: Mild Correctional Scale Methylprednisolone Sodium Succinate (Solu-Medrol) 20 mg IVP DAILY [facility] Last Admin: 02/21/18 08:25 Dose: 20 mg Ondansetron HCl (Zofran) 4 mg IVP Q6H PRN PRN Reason: Nausea/Vomiting
[2018-02-21] MEDS: Sodium Chloride 0.9% 1,000 ML IV SCH (12:07)
--- NOTE | 2018-02-21 23:55 | PRG ---
DATE OF SERVICE: 02/21/2018 REASON FOR CONSULTATION: Diverticulitis, ulcerative colitis. SUBJECTIVE: The patient states that she is feeling better this morning with no acute events or probl ems overnight; however, per nursing staff, they noticed that she did have a slightly bloody and mucoi d bowel movement earlier today. No other new events observed by nursing staff. Currently she denies any nausea, vomiting, fevers, chills, or GI bleeding. OBJECTIVE: VITAL SIGNS: Temperature 97.8, pulse 82, blood pressure 119/74, respiratory rate 18, satting 95% on room air. GENERAL: The patient is lying in bed, in no acute distress, alert and oriented x1. CARDIOVASCULAR: Regular rate and rhythm. RESPIRATORY: Clear to auscultation bilaterally. ABDOMEN: Normoactive bowel sounds, soft, nondistended. Tenderness to palpation in the lower abdomin al quadrants. EXTREMITIES: No cyanosis, clubbing, or edema. LABORATORY DATA: No current labs are available for review. IMAGING DATA: No current GI imaging is available for review. ASSESSMENT: The patient is an 87-year-old female with past medical history of gastroesophageal reflu x disease, hypertension, duodenal ulcer, osteoarthritis, chronic kidney disease stage 3, advanced dem entia, and ulcerative colitis presenting with acute perforated diverticulitis. Diverticulitis: The patient is presenting during this admission with increased lower quadrant abdomi nal pain and CT scan findings consistent with acute perforated diverticulitis. There is a small flui d collection adjacent to the sigmoid colon concerning for possible abscess formation, but per General Surgery recommendations, we will continue to monitor for now with repeat imaging tomorrow morning to ascertain if this is getting any larger or may be amenable to percutaneous drainage. Per nursing st aff, she is having some slightly bloody and mucoid stools, which could be due to either the presence of acute diverticulitis versus increased inflammation secondary to ulcerative colitis. At this time, it is unclear which may be contributing more to that particular clinical finding. RECOMMENDATIONS: 1. We would continue IV antibiotics for acute perforated diverticulitis. 2. We would continue clear liquid diet for this particular patient. 3. Pain control per primary team. 4. We would continue IV steroids for now given recent starting of Humira and prevention of adrenal c risis with abrupt withdrawal. 5. Endoscopic evaluation is not indicated at this time. 6. Agree with General Surgery service with repeat imaging tomorrow to ascertain any possible worseni ng of her perforated diverticulitis. We will continue to follow. Please call with any questions.
[2018-02-22] MEDS: Sodium Chloride 0.9% 1,000 ML IV SCH ×5 (00:45→18:46)
[2018-02-22 04:39] LABS: #Eosinphils 0.1 thou/uL (0.0-0.7); #Lymphocytes 2.7 thou/uL (1.20-3.40); #Monocytes 0.6 thou/uL (0.11-0.59); #Neutrophils 3.9 thou/uL (1.40-6.50); %Basophils 0.3 % (0.0-1.0); %Lymphocytes 37.1 % (21.0-51.0); %Monocytes 7.5 % (0.0-10.0); Hemoglobin 10.8 g/dL (12.0-16.0); Mean Corpuscular HGB CONC 32.9 g/dL (32.0-36.0); Mean Corpuscular Hemoglobin 30.4 pg (27.0-31.0); Mean Corpuscular Volume 92.4 fl (81.0-99.0); Mean Platelet Volume 7.3 fL (7.4-10.4); Platelet Count 185 thou/uL (130-400); Red Blood Cell (RBC) Count 3.55 mill/uL (4.20-5.40); White Blood Cell (WBC) Count 7.3 thou/uL (4.8-10.8)
[2018-02-22] MEDS: MEROPENEM 1 GM/50 ML 1 GM in Premix Bag 1 BAG IVPB SCH ×3 (04:45→20:34)
[2018-02-22 05:15] LABS: Anion Gap 10 mmol/L (10-20); BUN (Urea Nitrogen) 20 mg/dL (9.8-20.1); Calc. Creatinine Clearance 44 mL/min (70-130); Carbon Dioxide 25 mmol/L (23-31); Chloride 106 mmol/L (98-107); Estimated GFR-MDRD 59; Glucose 83 mg/dL (83-110); Potassium 3.7 mmol/L (3.5-5.1); Sodium 137 mmol/L (136-145)
[2018-02-22] MEDS: Enoxaparin Sodium 80 MG/0.8 ML SYRINGE SC SCH ×2 (09:34→20:35)
[2018-02-22] MEDS: Famotidine 40 MG/4 ML VIAL SLOW IVP SCH (09:38)
--- NOTE | 2018-02-22 10:48 | CT ---
ABDOMEN AND PELVIC CT SCAN WITH IV CONTRAST: Date: 02/22/18 HISTORY: 87-year-old female with history of ulcerative colitis and diverticulitis. Generalized abdominal pain. COMPARISON: 02/18/18. FINDINGS: Small bilateral pleural effusions, greater on the left. Some patchy parenchymal changes in the left l ower lobe, more prominent than on prior study, nonspecific. The visualized liver, gallbladder, pancre as, spleen, and adrenal glands are unremarkable. No renal calculus or evidence for acute obstructi on. Normal appearing appendix. Focal pericolonic 1.7 cm diameter fluid and air collection, probably a small pericolonic communicating walled-off perforation, which I would favor over that of a very larg e colonic diverticulum. No evidence for other new process. There is some generalized left colon wall thickening. Small hiatal hernia. There is a filling defect in the upper right common femoral vein an d distal right external iliac vein, evidence for deep venous thrombosis. This was documented on a vilma or venous duplex ultrasound study of 02/19/18 and this thrombus remains. IMPRESSION: Stable, approximately 1.7 cm diameter, air and fluid collection adjacent to the sigmoid colon, probab ly a contained walled-off perforation/abscess/very large diverticulum. Minimal nonspecific left colon heterogeneous wall thickening. Small pleural effusions, slightly larger on the left side. Minimal pa tchy parenchymal changes in the left lower lobe, slightly more prominent than on prior study. Intralu janice thrombus in the upper right common femoral and external iliac vein, which was documented on a p rior venous duplex study of 02/19/18. No significant change in the appearance of the small pericoloni c air and fluid collection when compared to the prior 02/18/18 study. POS: FAVIO
--- NOTE | 2018-02-22 13:12 | PDOC.PN ---
- Subjective Encounter Start Date: 02/22/18 Encounter Start Time: 10:15 Subjective: is more awake and smiles now -: follows verbal stimuli -: no nausea, is tolerating liq diet - Objective Resuscitation Status: Resuscitation Status FULL:Full Resuscitation MAR Reviewed: Yes Vital Signs & Weight: Vital Signs (12 hours) Temp Pulse Resp BP Pulse Ox 02/22/18 08:00 98.8 F 89 18 93 L 02/22/18 07:58 98.8 F 89 18 132/84 93 L Weight Admit Weight 146 lb Weight 146 lb I&O: 02/21/18 02/22/18 02/23/18 06:59 06:59 06:59 Intake Total 240 1999 Balance 240 1999 Result Diagrams: 02/22/18 04:07 02/22/18 04:06 Additional Labs: Accuchecks 02/22/18 02/22/18 02/21/18 11:28 05:06 20:05 POC Glucose 100 81 153 H 02/21/18 16:38 POC Glucose 118 H Phys Exam - Physical Examination HEENT: PERRLA, moist MMs Neck: no JVD, supple Respiratory: no wheezing, no rales Cardiovascular: RRR, no significant murmur Gastrointestinal: soft, no distention, positive bowel sounds no rigidity or guarding Musculoskeletal: pulses present, edema present Neurological: non-focal, moves all 4 limbs Dx/Plan (1) Abscess of sigmoid colon Code(s): K63.0 - ABSCESS OF INTESTINE Status: Acute Comment: with diverticulitis (2) DVT (deep venous thrombosis) Code(s): I82.409 - ACUTE EMBOLISM AND THOMBOS UNSP DEEP VN UNSP LOWER EXTREMITY Status: Acute Qualifiers: DVT location: lower extremity Affected thrombotic vein of extremity: femoral Chronicity: acute Laterality: right Qualified Code(s): I82.411 - Acute embolism and thrombosis of right femoral vein (3) H/O ulcerative colitis Code(s): Z87.19 - PERSONAL HISTORY OF OTHER DISEASES OF THE DIGESTIVE SYSTEM Status: Chronic (4) Dementia Code(s): F03.90 - UNSPECIFIED DEMENTIA WITHOUT BEHAVIORAL DISTURBANCE Status: Chronic Qualifiers: Dementia type: unspecified type Dementia behavioral disturbance: without behavioral disturbance Qualified Code(s): F03.90 - Unspecified dementia without behavioral disturbance (5) GERD (gastroesophageal reflux disease) Code(s): K21.9 - GASTRO-ESOPHAGEAL REFLUX DISEASE WITHOUT ESOPHAGITIS Status: Chronic Qualifiers: Esophagitis presence: esophagitis presence not specified Qualified Code(s) : K21.9 - Gastro-esophageal reflux disease without esophagitis (6) Hypertension Code(s): I10 - ESSENTIAL (PRIMARY) HYPERTENSION Status: Chronic Qualifiers: Hypertension type: essential hypertension Qualified Code(s): I10 - Essential (primary) hypertension (7) Osteoarthritis Code(s): M19.90 - UNSPECIFIED OSTEOARTHRITIS, UNSPECIFIED SITE Status: Chronic Qualifiers: Osteoarthritis location: multiple joints - Plan repeat CT abd results noted, no change in size of abscess -: on lovenox sc q12h, oral anticoag when surgery is not contemplated -: has deconditioning, PT to mobilize more, rehab eval -: meropenem, iv steroids for UC, gentle iv hydration may dc if tolerating liq * . Review of Systems - Medications/Allergies Allergies/Adverse Reactions: Allergies Allergy/AdvReac Type Severity Reaction Status Date / Time Penicillins Allergy Verified 01/15/15 15:37 Medications: Current Medications Acetaminophen (Tylenol) 650 mg IN Q4H PRN PRN Reason: Headache/Fever or Pain Acetaminophen (Tylenol) 650 mg PO Q4H PRN PRN Reason: Headache/Fever or Pain Dextrose/Water (Dextrose 50%) 25 gm SLOW IVP PRN PRN PRN Reason: Hypoglycemia Enoxaparin Sodium (Lovenox) 70 mg SC BID [facility] Last Admin: 02/22/18 09:34 Dose: 70 mg Famotidine (Pepcid) 20 mg SLOW IVP DAILY [facility] Last Admin: 02/22/18 09:38 Dose: 20 mg Glucagon (Glucagon) 1 mg IM PRN PRN PRN Reason: Hypoglycemia Dextrose/Water (D5w) 1,000 mls @ 0 mls/hr IV .Q0M PRN; As Directed PRN Reason: Hypoglycemia Meropenem 1 gm/ Device 50 mls @ 100 mls/hr IVPB 0400,1200,2000 [facility] Last Admin: 02/22/18 04:45 Dose: 50 mls Sodium Chloride (Normal Saline 0.9%) 1,000 mls @ 80 mls/hr IV .[id number] [facility] Last Admin: 02/22/18 04:52 Dose: 1,000 mls Insulin Human Lispro (Humalog) 0 units SC .MILD SLIDING SCALE PRN PRN Reason: Mild Correctional Scale Methylprednisolone Sodium Succinate (Solu-Medrol) 20 mg IVP DAILY [facility] Last Admin: 02/22/18 09:34 Dose: 20 mg Ondansetron HCl (Zofran) 4 mg IVP Q6H PRN PRN Reason: Nausea/Vomiting
--- NOTE | 2018-02-22 14:25 | PRG ---
DATE OF SERVICE: 02/22/2018 SUBJECTIVE: The patient is doing well. She has no complaints, no abdominal pain. She is unsure if she has had a bowel movement. She is tolerating clear liquids fine. OBJECTIVE: VITAL SIGNS: Temperature 98.8, pulse 89, respiratory rate 18, blood pressure 132/84. CHEST: Clear. CARDIOVASCULAR: Regular rate and rhythm. ABDOMEN: Soft, nontender. LABORATORY DATA: Shows a white blood cell count of 7.3, hemoglobin 10.8, hematocrit 32.9. Repeats CT scan showed a 1.7 cm fluid collection. ASSESSMENT: 1. Diverticulitis with a 1.7 cm abscess, too small to percutaneously drain. The patient is not a mitchell rgical candidate at this time. 2. Ulcerative colitis. RECOMMENDATIONS: 1. We will continue with conservative measures such as IV antibiotics. 2. Advance diet. The patient is wanting to increase her diet.
[2018-02-23] MEDS: MEROPENEM 1 GM/50 ML 1 GM in Premix Bag 1 BAG IVPB SCH ×3 (04:24→20:06)
[2018-02-23] MEDS: Famotidine 40 MG/4 ML VIAL SLOW IVP SCH (09:34)
[2018-02-23] MEDS: Enoxaparin Sodium 80 MG/0.8 ML SYRINGE SC SCH ×2 (09:35→20:06)
[2018-02-23] MEDS: Acetaminophen 325 MG TAB PO PRN ×2 (09:38→14:17)
[2018-02-23] MEDS: Sodium Chloride 0.9% 1,000 ML IV SCH ×2 (09:39→20:06)
--- NOTE | 2018-02-23 11:39 | PRG ---
DATE OF SERVICE: 02/23/2018 SUBJECTIVE: The patient is somewhat less alert than yesterday. She does seem to answer questions ap propriately when woken up. OBJECTIVE: VITAL SIGNS: Temperature 98.3, pulse 82, respiratory rate 20, blood pressure 145/78. HEENT: Unremarkable. NECK: Supple. CHEST: Clear. CARDIOVASCULAR: Regular rate and rhythm. ABDOMEN: Soft, slightly tender in left lower quadrant. LABORATORY DATA: The only new laboratory is a glucose of 92. ASSESSMENT: 1. Diverticulitis with a small 1.7 cm abscess. 2. Ulcerative colitis. 3. Deep venous thrombosis. RECOMMENDATIONS: 1. Continue IV antibiotics. 2. We will switch from IV Solu-Medrol to p.o. prednisone at 20 mg per day and continue a taper. 3. Continue Humira - I tried to contact the patient's son to find out when her next Humira dose is d ue. 4. The patient does not seem to have any GI bleeding with subcutaneous Lovenox. I think she would b e able to tolerate oral anticoagulation. 5. May need to switch over to p.o. antibiotics and we can follow her diverticular abscess up as an o utpatient. 6. Advance diet.
--- NOTE | 2018-02-23 15:14 | PDOC.PN ---
- Subjective Encounter Start Date: 02/23/18 Encounter Start Time: 15:12 Ms. Bennett was seen today in follow-up. She appears a bit drowsy. She does not have any complaints, and appears comfortable. - Objective Resuscitation Status: Resuscitation Status FULL:Full Resuscitation MAR Reviewed: Yes Vital Signs & Weight: Vital Signs (12 hours) Temp Pulse Pulse Resp BP BP Pulse Ox 02/23/18 08:18 90 148/64 H 02/23/18 08:00 98.3 F 82 20 94 L 02/23/18 07:47 98.3 F 82 20 145/78 H 94 L Pulse Ox 02/23/18 08:18 91 L 02/23/18 08:00 02/23/18 07:47 Weight Admit Weight 146 lb Weight 146 lb I&O: 02/22/18 02/23/18 02/24/18 06:59 06:59 06:59 Intake Total 1999 2430 Output Total 500 Balance 1999 1930 Result Diagrams: 02/22/18 04:07 02/22/18 04:06 Additional Labs: Accuchecks 02/23/18 02/23/18 02/23/18 13:30 11:30 04:29 POC Glucose 114 H 99 92 02/22/18 02/22/18 21:00 16:49 POC Glucose 130 H 121 H Phys Exam - Physical Examination HEENT: PERRLA, sclera anicteric Respiratory: no wheezing, no rales, no rhonchi, clear to auscultation bilateral Cardiovascular: RRR, no significant murmur, no rub Gastrointestinal: soft, non-tender, positive bowel sounds Musculoskeletal: edema present trace pedal edema Dx/Plan (1) Abscess of sigmoid colon Code(s): K63.0 - ABSCESS OF INTESTINE Status: Acute Comment: with diverticulitis (2) DVT (deep venous thrombosis) Code(s): I82.409 - ACUTE EMBOLISM AND THOMBOS UNSP DEEP VN UNSP LOWER EXTREMITY Status: Acute Qualifiers: DVT location: lower extremity Affected thrombotic vein of extremity: femoral Chronicity: acute Laterality: right Qualified Code(s): I82.411 - Acute embolism and thrombosis of right femoral vein (3) Dementia Code(s): F03.90 - UNSPECIFIED DEMENTIA WITHOUT BEHAVIORAL DISTURBANCE Status: Chronic Qualifiers: Dementia type: unspecified type Dementia behavioral disturbance: without behavioral disturbance Qualified Code(s): F03.90 - Unspecified dementia without behavioral disturbance (4) H/O ulcerative colitis Code(s): Z87.19 - PERSONAL HISTORY OF OTHER DISEASES OF THE DIGESTIVE SYSTEM Status: Chronic - Plan * Abscess of the Sigmoid Colon- continue Meropenem- it is a small abscess, and does not appear she will need surgery * Pneumonia- Continue meropenem for now * DVT- continue Lovenox- will consider change to oral anticoagulation- will discuss with her son which agent to use * Dementia- stable * Ulcerative Colitis- she can have her scheduled dose of Humira
[2018-02-23] MEDS ORDERED: Adalimumab 40 MG/0.8 ML SYRINGE SC SCH (17:00)
[2018-02-24] MEDS: MEROPENEM 1 GM/50 ML 1 GM in Premix Bag 1 BAG IVPB SCH ×2 (04:07→12:04)
[2018-02-24 04:32] LABS: Hemoglobin 11.3 g/dL (12.0-16.0); Platelet Count 141 thou/uL (130-400)
[2018-02-24] MEDS: Enoxaparin Sodium 80 MG/0.8 ML SYRINGE SC SCH (09:08)
[2018-02-24] MEDS: predniSONE 20 MG TAB PO SCH (09:08)
[2018-02-24] MEDS: Sodium Chloride 0.9% 1,000 ML IV SCH ×2 (09:09→21:01)
[2018-02-24] MEDS: Famotidine 40 MG/4 ML VIAL SLOW IVP SCH (10:18)
[2018-02-24] MEDS: Acetaminophen 325 MG TAB PO PRN (12:38)
--- NOTE | 2018-02-24 14:57 | PDOC.PN ---
- Subjective Encounter Start Date: 02/24/18 Encounter Start Time: 14:55 Ms. Bennett was seen in follow-up of diverticular abscess and DVT. She is more alert today than yesterday, but still appears very weak. She does not admit to having any problems this afternoon. - Objective Resuscitation Status: Resuscitation Status FULL:Full Resuscitation MAR Reviewed: Yes Vital Signs & Weight: Vital Signs (12 hours) Temp Pulse Resp BP Pulse Ox 02/24/18 08:00 97.3 F L 79 18 91 L 02/24/18 07:16 97.3 F L 79 18 135/71 91 L Weight Admit Weight 146 lb Weight 146 lb I&O: 02/23/18 02/24/18 02/25/18 06:59 06:59 06:59 Intake Total 2430 2724 Output Total 500 Balance 1930 2724 Result Diagrams: 02/24/18 03:54 02/24/18 03:54 Additional Labs: Accuchecks 02/24/18 02/24/18 02/23/18 11:30 05:08 21:24 POC Glucose 86 70 104 02/23/18 16:43 POC Glucose 120 H Phys Exam - Physical Examination HEENT: PERRLA Respiratory: no wheezing, no rales, no rhonchi, clear to auscultation bilateral Cardiovascular: RRR, no significant murmur, no rub Gastrointestinal: soft, non-tender, no distention, positive bowel sounds Musculoskeletal: no edema Dx/Plan (1) Abscess of sigmoid colon Code(s): K63.0 - ABSCESS OF INTESTINE Status: Acute Comment: with diverticulitis (2) DVT (deep venous thrombosis) Code(s): I82.409 - ACUTE EMBOLISM AND THOMBOS UNSP DEEP VN UNSP LOWER EXTREMITY Status: Acute Qualifiers: DVT location: lower extremity Affected thrombotic vein of extremity: femoral Chronicity: acute Laterality: right Qualified Code(s): I82.411 - Acute embolism and thrombosis of right femoral vein (3) Dementia Code(s): F03.90 - UNSPECIFIED DEMENTIA WITHOUT BEHAVIORAL DISTURBANCE Status: Chronic Qualifiers: Dementia type: unspecified type Dementia behavioral disturbance: without behavioral disturbance Qualified Code(s): F03.90 - Unspecified dementia without behavioral disturbance (4) H/O ulcerative colitis Code(s): Z87.19 - PERSONAL HISTORY OF OTHER DISEASES OF THE DIGESTIVE SYSTEM Status: Chronic - Plan * Diverticular Abscess- small- and treated medically- will change her antibiotics to Cipro and Flagyl orally * Will advance her diet * DVT- her son communicated to the nurse that he would like his mother to be placed on Elquis- will start the first dose tonight * Ulcerative Colitis- Quiescent * Hopefully can begin to make discharge plans.
[2018-02-24] MEDS: metroNIDAZOLE 500 MG TAB PO SCH ×2 (16:42→21:00)
[2018-02-24] MEDS: Ciprofloxacin 500 MG TAB PO SCH (21:00)
[2018-02-24] MEDS: Apixaban 5 MG TAB PO SCH (21:00)
[2018-02-25 05:01] LABS: Anion Gap 8 mmol/L (10-20); BUN (Urea Nitrogen) 12 mg/dL (9.8-20.1); Calc. Creatinine Clearance 55 mL/min (70-130); Calcium 7.8 mg/dL (7.8-10.44); Carbon Dioxide 25 mmol/L (23-31); Chloride 107 mmol/L (98-107); Estimated GFR-MDRD 76; Glucose 84 mg/dL (83-110); Potassium 3.2 mmol/L (3.5-5.1); Sodium 137 mmol/L (136-145)
[2018-02-25 05:09] LABS: Band 25 % (5-11); Hemoglobin 10.6 g/dL (12.0-16.0); Lymphocytes 45 % (21-51); MDiff Complete? YES; Mean Corpuscular HGB CONC 32.6 g/dL (32.0-36.0); Mean Corpuscular Hemoglobin 30.2 pg (27.0-31.0); Mean Corpuscular Volume 92.8 fl (81.0-99.0); Mean Platelet Volume 7.6 fL (7.4-10.4); Metamyelocyte 3 % (0-0); Neutrophil 26 % (42-75); PLT Morphology Comment Appears Adequate; Platelet Count 175 thou/uL (130-400); RBC Distribution Width 14.2 % (11.5-14.5); Red Blood Cell (RBC) Count 3.52 mill/uL (4.20-5.40); White Blood Cell (WBC) Count 8.9 thou/uL (4.8-10.8)
[2018-02-25] MEDS: Ciprofloxacin 500 MG TAB PO SCH ×2 (06:13→20:18)
[2018-02-25] MEDS: Apixaban 5 MG TAB PO SCH ×2 (08:25→20:18)
[2018-02-25] MEDS: predniSONE 20 MG TAB PO SCH (08:25)
[2018-02-25] MEDS: metroNIDAZOLE 500 MG TAB PO SCH ×3 (08:25→20:18)
[2018-02-25] MEDS: Famotidine 40 MG/4 ML VIAL SLOW IVP SCH (11:11)
--- NOTE | 2018-02-25 14:28 | PRG ---
DATE OF SERVICE: 02/25/2018 SUBJECTIVE: The patient is doing well. She is much more alert today. She has no GI complaints. OBJECTIVE: VITAL SIGNS: Temperature 97.8, pulse 88, respiratory rate 18, blood pressure 125/60. CHEST: Clear. CARDIOVASCULAR: Regular rate and rhythm. ABDOMEN: Soft, nontender, without organomegaly or masses. LABORATORY DATA: Shows a white blood cell count of 8.9, hemoglobin 10.6, hematocrit of 32.7 and 25% bands. Chemistry shows a potassium of 3.2. ASSESSMENT: 1. Diverticular abscess. 2. Ulcerative colitis. 3. Pulmonary embolism. RECOMMENDATIONS: 1. Decrease prednisone to 10 mg every day. 2. Stable for discharge from GI standpoint. 3. Continue antibiotic course for a total course of 2 weeks.
--- NOTE | 2018-02-25 14:43 | PDOC.PN ---
- Subjective Encounter Start Date: 02/25/18 Encounter Start Time: 14:41 Ms. Bennett was seen today in follow-up of DVT and Diverticular abscess. She is beginning to eat better, she denies abdominal pain. - Objective Resuscitation Status: Resuscitation Status FULL:Full Resuscitation MAR Reviewed: Yes Vital Signs & Weight: Vital Signs (12 hours) Temp Pulse Resp BP Pulse Ox 02/25/18 08:00 97.8 F 88 18 125/60 90 L Weight Admit Weight 146 lb Weight 146 lb I&O: 02/24/18 02/25/18 02/26/18 06:59 06:59 06:59 Intake Total 2724 3440 Balance 2724 3440 Result Diagrams: 02/25/18 04:25 02/25/18 04:25 Additional Labs: Accuchecks 02/25/18 02/25/18 02/24/18 11:50 04:44 20:26 POC Glucose 106 85 132 H 02/24/18 16:19 POC Glucose 153 H Phys Exam - Physical Examination HEENT: PERRLA, sclera anicteric Respiratory: no wheezing, no rales, no rhonchi, clear to auscultation bilateral Cardiovascular: RRR, no significant murmur, no rub Gastrointestinal: soft, non-tender, no distention, positive bowel sounds Musculoskeletal: no edema Dx/Plan (1) Abscess of sigmoid colon Code(s): K63.0 - ABSCESS OF INTESTINE Status: Acute Comment: with diverticulitis (2) DVT (deep venous thrombosis) Code(s): I82.409 - ACUTE EMBOLISM AND THOMBOS UNSP DEEP VN UNSP LOWER EXTREMITY Status: Acute Qualifiers: DVT location: lower extremity Affected thrombotic vein of extremity: femoral Chronicity: acute Laterality: right Qualified Code(s): I82.411 - Acute embolism and thrombosis of right femoral vein (3) Dementia Code(s): F03.90 - UNSPECIFIED DEMENTIA WITHOUT BEHAVIORAL DISTURBANCE Status: Chronic Qualifiers: Dementia type: unspecified type Dementia behavioral disturbance: without behavioral disturbance Qualified Code(s): F03.90 - Unspecified dementia without behavioral disturbance (4) H/O ulcerative colitis Code(s): Z87.19 - PERSONAL HISTORY OF OTHER DISEASES OF THE DIGESTIVE SYSTEM Status: Chronic - Plan * Diverticular Abscess- continue Cipro and Flagyl * DVT- will continue Eliquis, and monitor closely for signs of GI bleed * Ulcerative Colitis- stable-she has received a dose of Humira, and Prednisone has been stepped down * She is severely deconditioned as a result of her current illness, She had been fairly independent at home prior to the admission. Continue PT/OT, and awaiting Rehab approval
[2018-02-25] MEDS: Sodium Chloride 0.9% 1,000 ML IV SCH ×3 (15:01→20:18)
[2018-02-26 04:48] LABS: Hemoglobin 10.1 g/dL (12.0-16.0); Platelet Count 191 thou/uL (130-400)
[2018-02-26] MEDS: Ciprofloxacin 500 MG TAB PO SCH (05:44)
[2018-02-26] MEDS ORDERED: predniSONE 20 MG TAB PO SCH (08:00)
[2018-02-26] MEDS: Apixaban 5 MG TAB PO SCH (09:55)
[2018-02-26] MEDS: metroNIDAZOLE 500 MG TAB PO SCH ×2 (09:55→15:40)
[2018-02-26] MEDS: Famotidine 40 MG/4 ML VIAL SLOW IVP SCH (10:17)
[2018-02-26 12:16] VITALS: BP 133/76; TEMP 97.7
--- NOTE | 2018-02-27 01:35 | DIS ---
DATE OF ADMISSION: 02/19/2018 DATE OF DISCHARGE: 02/26/2018 PRIMARY CARE PHYSICIAN: Darius Molina M.D. DISCHARGE DISPOSITION: Home. PRIMARY DISCHARGE DIAGNOSES: 1. Diverticular abscess. 2. Deep vein thrombosis on the right common femoral vein. 3. Ulcerative colitis, on Humira. 4. Osteoarthritis. 5. Gastroesophageal reflux disease. DISCHARGE MEDICATIONS: Include Eliquis 10 mg twice a day for 5 more days and then changed to 5 mg tw ice a day, ciprofloxacin 500 mg twice a day for 14 days, furosemide 20 mg daily, mesalamine 1.5 grams q.i.d., Flagyl 500 mg 3 times a day for 14 days, pantoprazole 40 mg daily, and prednisone 10 mg luis y. PROCEDURES DURING THIS ADMISSION: The patient had a CT scan of the abdomen and pelvis, there was william dence of foci of diverticulitis with a small infected fluid collection and early forming abscess gifty cent to the proximal sigmoid colon. The patient also had a CT angiogram of the chest, which was nega tive for pulmonary embolism. There was an upper lobe infiltrate on the left. The patient had lower extremity venous Doppler showing a thrombus in the right common femoral vein. CODE STATUS: FULL CODE. ALLERGIES: PENICILLIN. HOSPITAL COURSE: Ms. Bennett is a pleasant 87-year-old female who presented to the emergency room wi th abdominal pain and generalized weakness. She was evaluated and found to have a diverticular absce ss. She was admitted and evaluated by General Surgery as well as Gastroenterology and it was felt th at this would be best managed nonoperatively. She was placed on IV antibiotics and improved. She wa s found to have a deep vein thrombosis on the right lower extremity during her hospital stay and has been placed initially on Lovenox and then was transitioned to Eliquis. The risks and benefits of Ania nati were explained to the patient and patient's son and we did include the slightly increased risk o f GI bleed on Eliquis. Due to the patient being severely deconditioned and had prior to her hospital ization been more or less independent at home. She will be transferred to inpatient rehabilitation i n order to help with reconditioning. In addition to help monitor her while on Eliquis for signs of G I bleed and also to monitor her with periodic abdominal exams and lab work with regards to the divert icular abscess. This will need to be followed up in 2 weeks as an outpatient basis.
== END 2018-02-26 17:33 | DRG 300 ==
LOC: ERS 21:06 → T4-B 02-19 00:30
PROVIDERS: ADMIT Family Medicine; ATTEND Family Medicine
DX: I82.411 Acute embolism and thrombosis of right femoral vein (principal); K57.20 Diverticulitis of large intestine with perforation and abscess without bleeding; K51.90 Ulcerative colitis, unspecified, without complications; N17.9 Acute kidney failure, unspecified; F03.90 Unspecified dementia, unspecified severity, without behavioral disturbance, psychotic disturbance, mood disturbance, and anxiety; K21.9 Gastro-esophageal reflux disease without esophagitis; M19.90 Unspecified osteoarthritis, unspecified site; F41.9 Anxiety disorder, unspecified; I12.9 Hypertensive chronic kidney disease with stage 1 through stage 4 chronic kidney disease, or unspecified chronic kidney disease; N18.3 Chronic kidney disease, stage 3 (moderate)
CPT/HCPCS: 36415; 36416; 71045; 71275; 74177; 80048; 80053; 82533; 82550; 82553; 82565; 83605; 84436; 84443; 84481; 84484; 85014; 85018; 85025; 85027; 85049; 85379; 85610; 85730; 90471; 90670; 93005; 93970; 96365; A4216; G0009; G8978-GP-CJ; G8979-GP-CI; G8987-GO-CM; G8988-GO-CJ; J0131; J0692; J1650; J2185; J2920; J3370; J7506

== ENCOUNTER 2018-02-28 12:19 | Inpatient (IN) | payer MEDICARE ==
[2018-02-28] MEDS ORDERED: Diltiazem 125 MG in Sodium Chloride 0.9% 100 ML IVPB SCH ×3 (12:45→15:43)
[2018-02-28 13:25] LABS: INR-International Normal Ratio 2.6; Prothrombin Time 28.9 SEC (12.0-14.7)
[2018-02-28 13:26] LABS: PTT 45.7 SEC (22.9-36.1)
[2018-02-28 13:35] LABS: Hemoglobin 11.5 g/dL (12.0-16.0); Mean Corpuscular HGB CONC 33.5 g/dL (32.0-36.0); Mean Corpuscular Volume 92.5 fl (81.0-99.0); Mean Platelet Volume 7.8 fL (7.4-10.4); Platelet Count 199 thou/uL (130-400); RBC Distribution Width 14.1 % (11.5-14.5); Red Blood Cell (RBC) Count 3.72 mill/uL (4.20-5.40); White Blood Cell (WBC) Count 12.8 thou/uL (4.8-10.8)
[2018-02-28 13:39] LABS: Digoxin Less than 0.15 ng/mL (0.8-2.0)
[2018-02-28 13:43] LABS: ALT (SGPT) 12 U/L (8-55); AST (SGOT) 23 U/L (5-34); Albumin 2.4 g/dL (3.4-4.8); Alkaline Phosphatase 66 U/L (40-150); Anion Gap 13 mmol/L (10-20); BUN (Urea Nitrogen) 14 mg/dL (9.8-20.1); Bilirubin, Total 0.6 mg/dL (0.2-1.2); CK (CPK) 89 U/L (29-168); Calc. Creatinine Clearance 0 mL/min (70-130); Carbon Dioxide 23 mmol/L (23-31); Chloride 104 mmol/L (98-107); Estimated GFR-MDRD 61; Globulin 2.6 g/dL (2.4-3.5); Glucose 121 mg/dL (83-110); Potassium 3.2 mmol/L (3.5-5.1); Sodium 137 mmol/L (136-145)
[2018-02-28 13:45] LABS: CKMB 1.1 ng/mL (0-6.6); Troponin I 0.026 ng/mL (< 0.028)
[2018-02-28 13:52] LABS: Band 10 % (5-11); Eosinophils 1 % (0-10); Lymphocytes 9 % (21-51); MDiff Complete? YES; Monocytes 1 % (0-10); Myelocyte 1 % (0-0); Neutrophil 76 % (42-75); PLT Morphology Comment Appears Adequate; Polychromasia SLIGHT = 2-3 cells (100X) (0-2/hpf); Reactive Lymphocytes 2 % (0-10)
[2018-02-28 14:37] LABS: Bilirubin Negative (Negative); Blood, Urine Negative (Negative); Clarity CLEAR (Clear); Glucose, Urine (Dipstick) Negative (Negative); Leukocyte Negative (Negative); Nitrite Negative (Negative); Protein, Urine (Dipstick) Trace mg/dL (Neg-Trace); Specific Gravity, Urine 1.011 (1.002-1.036); Urobilinogen 0.2 mg/dL (0.2-1.0)
[2018-02-28] MEDS ORDERED: Artificial Tears 18 DROP/0.9 ML EA EYE PRN (15:43)
[2018-02-28] MEDS ORDERED: Ondansetron HCl/PF 4 MG/2 ML Vial IVP PRN (15:43)
[2018-02-28] MEDS ORDERED: Acetaminophen 325 MG TAB PO PRN (15:43)
[2018-02-28] MEDS ORDERED: Mag-Al 1200 mg/1200 mg/30 ML UDCUP PO PRN (15:43)
[2018-02-28] MEDS ORDERED: Potassium Chloride 20 MEQ TAB PO SCH (15:43)
[2018-02-28] MEDS ORDERED: Loperamide HCl 2 MG CAP PO PRN (15:43)
[2018-02-28] MEDS ORDERED: Senokot 8.6 MG TAB PO PRN (15:43)
[2018-02-28] MEDS ORDERED: Eucerin (Mineral Oil/Petrolatum,White) 30 gm Jar TOP PRN (15:43)
[2018-02-28] MEDS ORDERED: Sodium Chloride 0.65% Nasal 44 ML BOT EA NARE PRN (15:43)
[2018-02-28] MEDS ORDERED: Diabetic Tussin 200 MG/10 ML UDCUP PO PRN (15:43)
[2018-02-28] MEDS ORDERED: Ondansetron ODT 4 MG TAB PO PRN (15:43)
[2018-02-28] MEDS ORDERED: Milk Of Magnesia 30 ML UDCUP PO PRN (15:43)
[2018-02-28] MEDS ORDERED: Loratadine 10 MG TAB PO PRN (15:43)
[2018-02-28] MEDS ORDERED: HYDROcodone/Acetaminophen 5/325 mg Tablet PO PRN (15:43)
[2018-02-28] MEDS ORDERED: Chloraseptic Spray 180 ml Bottle PO PRN (15:43)
--- NOTE | 2018-02-28 16:10 | HP ---
PRIMARY CARE PHYSICIAN: Dr. Darius Molina. PRIMARY COLD STORAGE WORKER: Dr. Adair. REASON FOR ADMISSION: Sent from rehab for atrial fibrillation with rapid ventricular response. HISTORY OF PRESENT ILLNESS: An 87-year-old female who currently lives at [facility] has underlying diagnosis of ulcerative colitis which was diagnosed first time in 05/2017 after col onoscopy and biopsy confirmed that diagnosis. Initially, she was treated with mesalamine with clinic al response, but subsequently early this year, patient had a flare-up of ulcerative colitis. Subsequ ently, patient was kept on tapering doses of prednisone. She was started with 40 mg prednisone and s lowly tapered to currently 10 mg prednisone. Patient was also evaluated for Humira therapy. She had loading dose of Humira therapy and she was given maintenance dose of Humira on 02/23/2018. This patient was recently admitted in our hospital on 02/19/2018; at that time, she was diagnosed wit h sigmoid diverticulitis with possible abscess. During that admission, she also diagnosed with right lower extremity deep vein thrombosis. Patient remained on [place] [id number] medical floor during entire hospi arnie course. Her admission date was 02/19/2018 and she was discharged to rehabilitation on 02/26/2018 . She had significant physical deconditioning and that is why she was sent to rehabilitation. Durin g that admission, patient was given empiric broad spectrum antibiotic therapy and subsequently change d to oral Cipro and Flagyl. For DVT, patient was given initially Lovenox and subsequently she was ch anged to Eliquis therapy. Currently, patient is on tapering doses of prednisone. Before January admission in hospital, patient was also having similar type of fatigue, dyspnea on exert ion and vague discomfort and that is why she went to [facility] emergency room and patient was referred to Cardiology. Dr. García did a workup as an outpatient basis, but she was not found w ith any cardiac etiology and was referred to ER for admission. At that time, the patient was treated for diverticulitis. Today at rehab when she did physical therapy, her heart rate jumped to 220s. Patient was feeling wea k, dizzy and tired. She did not have any chest pain. She did not have any cough, but she was requir ing oxygen at rehab, she never used oxygen before. When the patient was brought to the ER, patient's pulse rate was above 200. She was given Cardizem b olus and subsequently Cardizem drip was started and the patient remained in atrial fibrillation, but rate was under control. Her blood pressure also dropped to 86/61. Patient did not have any fever or chills. At rehabilitation, EKG confirmed fibrillation and that is why patient was sent to the ER for treatment. REVIEW OF SYSTEMS: The following complete review of systems was negative, unless otherwise mentioned in the HPI or below: Constitutional: Weight loss or gain, ability to conduct usual activities. Sk in: Rash, itching. Eyes: Double vision, pain. ENT/Mouth: Nose bleeding, neck stiffness, pain, te nderness. Cardiovascular: Palpitations, dyspnea on exertion, orthopnea. Respiratory: Shortness of breath, wheezing, cough, hemoptysis, fever or night sweats. Gastrointestinal: Poor appetite, abdom inal pain, heartburn, nausea, vomiting, constipation, or diarrhea. Genitourinary: Urgency, frequenc y, dysuria, nocturia. Musculoskeletal: Pain, swelling. Neurologic/Psychiatric: Anxiety, depressio n. Allergy/Immunologic: Skin rash, bleeding tendency. Please see my HPI for pertinent positive and negative. All other review of systems reviewed and negative except as mentioned in the HPI. 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 PAST SURGICAL HISTORY: Left hip replacement, bilateral knee replacement, pain surgery for brain aneu rysm, colonoscopy. PAST PSYCHIATRIC HISTORY: Reviewed and negative. FAMILY HISTORY: No family history of premature coronary artery disease, stroke or cancer. ALLERGIES: PENICILLIN. EMERGENCY ROOM COURSE: Patient is given Cardizem bolus and Cardizem drip started. IV fluid was give n. SOCIAL HISTORY: Patient is currently at the rehabilitation. She is . She does not have any tobacco, alcohol or illicit drug abuse. CODE STATUS: Patient is FULL CODE. Patient's son is surrogate decision maker. CURRENT HOME MEDICATIONS: Eliquis 5 mg p.o. b.i.d., Cipro 500 mg p.o. b.i.d., Lasix 20 mg p.o. daily , Apriso 1.5 grams p.o. daily, Flagyl 500 mg p.o. t.i.d., Protonix 40 mg p.o. daily; prednisone curre ntly on 10 mg p.o. daily. PHYSICAL EXAMINATION: VITAL SIGNS: Currently, blood pressure 108/52, pulse 101 and irregular, respiratory rate 16, tempera ture 99.9, saturation 94% on room air, weight 81.6 kilograms. GENERAL: Patient is currently in atrial fibrillation, tachycardic, chronically ill. HEENT: Head is normocephalic, atraumatic. Eyes: Pupils round, reactive to light. Extraocular musc le intact. ENT: Dry appearing mucous membrane, no oral lesion, no pharyngeal erythema, no exudate. NECK: Supple, no JVD, no thyromegaly, no carotid bruit. LUNGS: Air entry reduced basally. No rales, no wheeze, no accessory muscles of respiration in use. CARDIAC: S1, S2 irregularly irregular. Unable to elicit any murmur, no gallop, no rub. ABDOMEN: Soft, bowel sounds present. On deep palpation, the patient reports mild discomfort, but no peritoneal sign, no guarding, no rigidity, no rebound. BACK: Unremarkable, no CVA tenderness. EXTREMITIES: Upper extremity passive movement of all joints are normal. Lower extremity, bilateral pitting edema noted and good distal pulsation. SKIN: Patient has very thin papery skin with multiple bruits noted. HEMATOLOGICAL: No lymphadenopathy. PSYCHIATRIC: Normal affect. NEUROLOGIC: The patient is moving all 4 limbs. Nonfocal neurological examination. SIGNIFICANT LABS: EKG and monitor showing atrial fibrillation with rapid ventricular response. CBC: WBC 12.8, hemoglobin 11.5, platelets 199 with bandemia. INR 2.6. BMP shows sodium 137, potassium 3.2, chloride 104, carbon dioxide 23, anion gap 13, BUN 14, creatinine 0.88, glucose 121, calcium 8.0 . LFT: AST 23, ALT 12, alkaline phosphatase 66, albumin 2.4. CK is 89, CK-MB 1.1, troponin 0.026. BN P 67.2. Digoxin level less than 0.15. ASSESSMENT AND PLAN: 1. Supraventricular tachycardia/atrial fibrillation with rapid ventricular response. Initial EKG wa s showing supraventricular tachycardia/atrial fibrillation with rapid ventricular response . Her hea rt rate was above 200. Currently, monitor is showing atrial fibrillation, but rate is under almost c ontrolled with Cardizem bolus and Cardizem drip. This is new onset. The patient's family member jerel s not have any clue of this problem in past. As this patient was recently diagnosed with deep venous thrombosis, she is at risk for pulmonary embolism. We will keep this patient on telemetry floor. W e will do Cardizem drip at 5 mg per hour. We will obtain echocardiography to assess ejection fractio n and other structural abnormality. We will also obtain CT angio to rule out pulmonary embolism. We will do serial cardiac enzymes x3. We will check thyroid function test. We will consult Cardiology . 2. Recent history of right lower extremity deep vein thrombosis on chronic anticoagulation therapy. We will continue Eliquis 5 mg p.o. b.i.d. and rule out pulmonary embolism with CT angio. 3. Recent diagnosis of sigmoid diverticulitis with suspected abdominal abscess. The patient will co ntinue oral Cipro 500 mg p.o. b.i.d. and Flagyl 500 mg p.o. t.i.d. 4. Ulcerative colitis. We will continue mesalamine 1.5 gram p.o. q.i.d. The patient is due for [facility] on 03/09/2018. 5. Gastroesophageal reflux disease. We will continue Protonix 40 mg p.o. daily. 6. Bandemia suspected from prednisone. Currently, patient is on a prednisone taper. She also has a n intraabdominal abscess and she is on both oral antibiotic therapy with Cipro and Flagyl. 7. Hypokalemia. We will replace potassium chloride while in hospital. 8. Deep venous thrombosis prophylaxis. Patient is on full dose of Eliquis therapy. 9. Gastrointestinal prophylaxis, Protonix 40 mg p.o. daily. CODE STATUS: I spoke with the patient's son and the patient's son is surrogate decision maker. The patient wanted to be a FULL CODE. DISPOSITION PLAN: Based on clinical course. We will follow up with you while in hospital.
--- NOTE | 2018-02-28 17:54 | CT ---
CT PULMONARY ANGIO CHEST WITH CONTRAST: INDICATIONS: Shortness of breath. Atrial fibrillation. DVT. Concern for pulmonary embolus. COMPARISON: Chest CT from 02/18/2018. TECHNIQUE: Multiple axial tomograms obtained through the chest following angio protocol with multiplanar reconst ruction and 3D post processing. FINDINGS: The pulmonary artery exhibit adequate enhancement. There is no evidence of pulmonary embolus identif ied. The thoracic aorta shows atherosclerotic change but no dissection. The lung vasquez reveal hazy ground glass opacities bilaterally, more prominent in the upper lobes. T here are chronic changes in the lower lobes with stranding and interstitial prominence. There is a s mall left effusion. Ground glass opacities are nonspecific but appear more prominent than on the vilma or exam and could represent infiltrate or edema. IMPRESSION: 1. No evidence of pulmonary embolus. 2. Some hazy ground glass opacities, more prominent in the upper lobes, with chronic lung changes in the lower lobes. 3. Small left effusion and bibasilar atelectasis. POS: AGW
--- NOTE | 2018-02-28 18:12 | CON ---
DATE OF CONSULTATION: 02/28/2018 REASON FOR CONSULTATION: Atrial fibrillation with rapid ventricular response. PRIMARY [employer] MINER: Kait García M.D. HISTORY OF PRESENT ILLNESS: Mrs. Bennett is a pleasant 87-year-old white female who comes to the [facility] for atrial fibrillation. She was recently admitted from 02/19-02/26 and discharged to [facility]. The reason for that admission was a sigmoid diverticulitis with possible abscess. She was p laced on IV antibiotics and eventually transitions to p.o. During that admission, she was also found to have a right lower extremity DVT and she was started on Eliquis for that. She has been in rehabi litation today and she was found to be very tachycardic. She did not feel well. She felt lightheade d and EKG was done and it showed atrial fibrillation RVR, heart rate in the 160s. She was brought in and she had a repeat EKG which suggests that she may have been at that point in SVT at 200 beats per minute. She was started on a Cardizem drip and she slowed down, eventually converted back to normal rhythm. Currently, on my evaluation, she is back to normal rhythm. She feels back to what she was before she left the hospital just a few days ago. PAST MEDICAL HISTORY: 1. Ulcerative colitis. 2. Hypertension. 3. Gastroesophageal reflux disease. 4. Allergic rhinitis. 5. Osteoarthritis. 6. Brain aneurysm, status post percutaneous clip many years ago. PAST SURGICAL HISTORY: 1. Left hip replacement. 2. Bilateral knee replacement. 3. Brain aneurysm surgery. 4. Colonoscopy. OUTPATIENT MEDICATIONS: Include, 1. Eliquis 5 mg p.o. b.i.d. 2. Cipro. 3. Lasix 20 mg a day. 4. Apriso (00:00 grams a day. 5. Flagyl 500 mg p.o. t.i.d. 6. Protonix 40 mg a day. 7. Prednisone 10 mg a day. ALLERGIES: PENICILLIN. SOCIAL HISTORY: Currently in rehabilitation, . No alcohol, tobacco or drugs. FAMILY HISTORY: Noncontributory. REVIEW OF SYSTEMS: A 12 point review of systems was done and is all negative unless stated in the hi story of present illness. PHYSICAL EXAMINATION: VITAL SIGNS: Temperature 97.8, pulse 81, respiration rate 18, satting 98% on 2 liters, blood pressur e 123/56. GENERAL: Awake, alert, oriented x3, in no distress. HEENT: Normocephalic, atraumatic. NECK: Supple. LUNGS: Clear. CARDIOVASCULAR: S1, S2, no S3, S4, no murmurs or rubs. There is a grade 2/6 systolic murmur. ABDOMEN: Soft, positive bowel sounds. EXTREMITIES: 2+ edema bilateral. SKIN: Warm and dry. LABORATORY WORK: Reviewed. White count of 12, hemoglobin 11, hematocrit 34, platelet count 199. Co ags: INR of 2.6. Chemistry: Potassium was 3.2 on admission, glucose of 121, albumin of 2.4. BNP w as normal. Troponin was normal x1. UA was unremarkable. Toxicology: Digoxin level was less than a ssay limit. She is not taking digoxin. ASSESSMENT AND PLAN: 1. Atrial fibrillation with rapid ventricular response. 2. Possible supraventricular tachycardia. 3. Recent admission for diverticulitis, on antibiotics. 4. Recent deep venous thrombosis on the right leg, treated with Eliquis. PLAN: 1. Currently, she is on a diltiazem drip at 5 mg per hour. She is back in normal rhythm. We will p fransisca on switching her diltiazem to a p.o. beta roxanne. 2. Continue Eliquis for both DVT and this will help in stroke prophylaxis as well. 3. We will consult Electrophysiology as one of the EKGs is clearly atrial fibrillation with the othe r could be SVT as his much more regular and is going to 200 beats per minute. 4. Hypokalemia is easily the culprit as well in the setting, replace potassium aggressively, try to keep it above 4. 5. A repeat CTA was done and results are pending as this may be embolism of her DVT. If this is the case, therapy remains unchanged on full dose Eliquis and switching her IV drip to oral beta roxanne. Thank you for letting us participate in the care of your patient. Dr. García, her primary Cardiology will follow up in the morning.
[2018-02-28 19:10] LABS: CKMB 1.3 ng/mL (0-6.6); Troponin I 0.067 ng/mL (< 0.028)
--- NOTE | 2018-02-28 20:24 | RAD ---
UPRIGHT PORTABLE CHEST ONE VIEW: HISTORY: An 87-year-old female with a history of an irregular heartbeat. COMPARISON: 02/18/2018 FINDINGS: There are increased linear and interstitial markings noted bilaterally, as well as some bilateral vas cular congestion. There is blunting of the costophrenic angles. IMPRESSION: 1. Some stable increased markings bilaterally but evidence for new vascular congestion with small pl eural effusions. 2. Heart size is within normal limits. 3. Atherosclerosis of the aorta. POS: [facility]
[2018-02-28] MEDS: Mesalamine DR 400 mg Capsule PO SCH (21:07)
[2018-02-28] MEDS: Cipro 250 MG TAB PO SCH (21:08)
[2018-02-28] MEDS: Metoprolol Tartrate 25 MG TAB PO SCH (21:09)
[2018-02-28] MEDS: metroNIDAZOLE 500 MG TAB PO SCH (21:09)
[2018-02-28] MEDS: Apixaban 5 MG TAB PO SCH (21:10)
[2018-02-28 21:30] LABS: CKMB 1.2 ng/mL (0-6.6)
[2018-03-01 05:27] LABS: ALT (SGPT) 10 U/L (8-55); AST (SGOT) 24 U/L (5-34); Albumin 1.7 g/dL (3.4-4.8); Alkaline Phosphatase 56 U/L (40-150); Anion Gap 13 mmol/L (10-20); BUN (Urea Nitrogen) 13 mg/dL (9.8-20.1); Bilirubin, Total 0.4 mg/dL (0.2-1.2); Calc. Creatinine Clearance 55 mL/min (70-130); Carbon Dioxide 21 mmol/L (23-31); Chloride 108 mmol/L (98-107); Estimated GFR-MDRD 69; Globulin 2.6 g/dL (2.4-3.5); Glucose 86 mg/dL (83-110); Magnesium 1.6 mg/dL (1.6-2.6); Phosphorus 2.2 mg/dL (2.3-4.7); Potassium 3.9 mmol/L (3.5-5.1); Protein, Total 4.3 g/dL (6.0-8.3); Sodium 138 mmol/L (136-145)
[2018-03-01 05:33] LABS: Band 1 % (5-11); Eosinophils 1 % (0-10); Hemoglobin 10.3 g/dL (12.0-16.0); Lymphocytes 23 % (21-51); MDiff Complete? YES; Mean Corpuscular HGB CONC 31.6 g/dL (32.0-36.0); Mean Corpuscular Hemoglobin 30.6 pg (27.0-31.0); Mean Corpuscular Volume 96.6 fl (81.0-99.0); Mean Platelet Volume 7.6 fL (7.4-10.4); Monocytes 2 % (0-10); Neutrophil 73 % (42-75); PLT Morphology Comment Appears Adequate; Platelet Count 233 thou/uL (130-400); RBC Distribution Width 14.4 % (11.5-14.5); Red Blood Cell (RBC) Count 3.37 mill/uL (4.20-5.40); White Blood Cell (WBC) Count 10.8 thou/uL (4.8-10.8)
[2018-03-01 05:43] LABS: Free T4 (Free Thyroxine) 1.14 ng/dL (0.70-1.48); Thyroid Stimulating Hormone 0.4832 uIU/mL (0.35-4.94)
[2018-03-01] MEDS: Cipro 250 MG TAB PO SCH ×2 (06:08→21:50)
[2018-03-01] MEDS: Mesalamine DR 400 mg Capsule PO SCH (08:47)
[2018-03-01] MEDS: Apixaban 5 MG TAB PO SCH (08:47)
[2018-03-01] MEDS: Saccharomyces boulardii 250 MG CAP PO SCH (08:47)
[2018-03-01] MEDS: Metoprolol Tartrate 25 MG TAB PO SCH ×2 (08:48→21:50)
[2018-03-01] MEDS: predniSONE 20 MG TAB PO SCH (08:48)
[2018-03-01] MEDS: metroNIDAZOLE 500 MG TAB PO SCH ×3 (08:48→21:50)
[2018-03-01] MEDS ORDERED: Spironolactone 25 MG TAB PO SCH ×2 (09:15→09:30)
--- NOTE | 2018-03-01 09:53 | PRG ---
DATE OF SERVICE: 03/01/2018 HISTORY: Ms. Bennett is sleeping in a very deep sleep. She does not report chest pain or pressure. She feels well. PHYSICAL EXAMINATION: VITAL SIGNS: Blood pressure 121/59, pulse 80, it is sinus on the monitor. LUNGS: Clear. CARDIAC: Normal S1, normal S2. ABDOMEN: Soft and nontender. EXTREMITIES: Moderate edema. ASSESSMENT: 1. Recent diagnosis of diverticular abscess, being treated medically. 2. Deep venous thrombosis, femoral vein, being treated with Eliquis. 3. Supraventricular tachycardia with a rare rapid rate, suspect atrial flutter, rate was still over 210 beats per minute. PLAN: 1. She is on low-dose beta blockers. 2. Can add oral diltiazem. 3. Electrophysiologic study. At some point, ablation would appear appropriate. Very rapid rate occ urs when she has this tachycardia. 4. There is also some mention of atrial fibrillation, although I do not see any rhythm strip documen tation of this on the chart.
[2018-03-01] MEDS: Furosemide 20 MG/2 ML VIAL SLOW IVP SCH (10:15)
--- NOTE | 2018-03-01 12:32 | PDOC.PN ---
- Subjective Encounter Start Date: 03/01/18 Encounter Start Time: 10:00 -: old records requested/rev Pt seen and examined, chart reviewed in its entirety. This is my frist visit with this patient Pt's son at bedside, questions answered, plan updated. Echo done earlier. pt remains in NSR since admit. No CP, no SOB, feels weak. denies abd pain, no F/c, no cough or sputum production, no GI bleed 10 point ROS performed and neg for all systems except as above - Objective Resuscitation Status: Resuscitation Status FULL:Full Resuscitation MAR Reviewed: Yes Vital Signs & Weight: Vital Signs (12 hours) Temp Pulse Resp BP BP Pulse Ox 03/01/18 10:16 81 121/93 H 03/01/18 08:00 98.1 F 91 18 121/93 H 94 L 03/01/18 07:19 97.6 F 81 17 97 03/01/18 04:00 97.6 F 81 17 121/59 L 98 Weight Weight 154 lb I&O: 02/28/18 03/01/18 03/02/18 06:59 06:59 06:59 Intake Total 360 Balance 360 Result Diagrams: 03/01/18 04:22 03/01/18 04:22 Radiology Reviewed by me: Yes EKG Reviewed by me: Yes Phys Exam - Physical Examination Constitutional: NAD HEENT: PERRLA, moist MMs, sclera anicteric, oral pharynx no lesions Neck: no nodes, no JVD, supple, full ROM Respiratory: no wheezing, no rhonchi bibasialr crackles present, good pair movement Cardiovascular: RRR, no significant murmur, no rub Gastrointestinal: soft, non-tender, no distention, positive bowel sounds Musculoskeletal: pulses present, edema present BLE tender to palpation Neurological: non-focal, normal sensation, moves all 4 limbs strength 3-4/5 Lymphatic: no nodes Psychiatric: normal affect Skin: no rash, normal turgor, cap refill <2 seconds Dx/Plan (1) Moderate protein-calorie malnutrition Code(s): E44.0 - MODERATE PROTEIN-CALORIE MALNUTRITION Status: Chronic (2) Abdominal pain Code(s): R10.9 - UNSPECIFIED ABDOMINAL PAIN Status: Acute Qualifiers: Abdominal location: epigastric Qualified Code(s): R10.13 - Epigastric pain (3) Abscess of sigmoid colon Code(s): K63.0 - ABSCESS OF INTESTINE Status: Acute Comment: with diverticulitis. CCM with antibiotics (4) DVT (deep venous thrombosis) Code(s): I82.409 - ACUTE EMBOLISM AND THOMBOS UNSP DEEP VN UNSP LOWER EXTREMITY Status: Acute Qualifiers: DVT location: lower extremity Affected thrombotic vein of extremity: femoral Chronicity: acute Laterality: right Qualified Code(s): I82.411 - Acute embolism and thrombosis of right femoral vein Comment: on eliquis, CTA negative for PE (5) CKD (chronic kidney disease), stage III Status: Chronic (6) Dementia Code(s): F03.90 - UNSPECIFIED DEMENTIA WITHOUT BEHAVIORAL DISTURBANCE Status: Chronic Qualifiers: Dementia type: unspecified type Dementia behavioral disturbance: without behavioral disturbance Qualified Code(s): F03.90 - Unspecified dementia without behavioral disturbance (7) GERD (gastroesophageal reflux disease) Code(s): K21.9 - GASTRO-ESOPHAGEAL REFLUX DISEASE WITHOUT ESOPHAGITIS Status: Chronic Qualifiers: Esophagitis presence: esophagitis presence not specified Qualified Code(s) : K21.9 - Gastro-esophageal reflux disease without esophagitis (8) H/O ulcerative colitis Code(s): Z87.19 - PERSONAL HISTORY OF OTHER DISEASES OF THE DIGESTIVE SYSTEM Status: Chronic (9) Hypertension Code(s): I10 - ESSENTIAL (PRIMARY) HYPERTENSION Status: Chronic Qualifiers: Hypertension type: essential hypertension Qualified Code(s): I10 - Essential (primary) hypertension (10) Osteoarthritis Code(s): M19.90 - UNSPECIFIED OSTEOARTHRITIS, UNSPECIFIED SITE Status: Chronic Qualifiers: Osteoarthritis location: multiple joints (11) Atrial flutter Code(s): I48.92 - UNSPECIFIED ATRIAL FLUTTER Status: Acute Comment: present on admit, converted back to NSr with cardizem in ER. MAT X 13 beats earlier this morning, but remains in SR. Dr phillips to see, Dr García following. Follow up echo results - Plan cont current plan of care, plan discussed w/ family, continue antibiotics, PT/OT , respiratory therapy, out of bed/ambulate * .
--- NOTE | 2018-03-01 17:12 | CON ---
DATE OF CONSULTATION: 03/01/2018 ELECTROPHYSIOLOGY CONSULTATION REPORT REFERRING PHYSICIAN: Kasi Aragon MD I am seeing Ms. Bennett at our [facility] telemetry floor as an electrophysiology oracle drm consultant. Her problems are: 1. Narrow complex supraventricular tachycardia at rates of 218 beats per minute. A. Prior EKG suggestive of multifocal atrial tachycardia. 2. History of atrial fibrillation in the past. 3. History of a brain aneurysm status post clipping in the past. 4. History of Alzheimer's dementia. 5. History of ulcerative colitis, on prednisone. 6. History of deep venous thrombosis on Eliquis therapy. ALLERGIES: PENICILLIN. MEDICATIONS AT HOME: Included furosemide, pantoprazole, Eliquis, Cipro, metronidazole, prednisone, Humira. SUBJECTIVE: Ms. Corona is somewhat of a poor historian. History obtained from the chart. This lady was originally admitted on 02/19/2018 at [place] with diverticulitis and possible abscess, also DVT was diagnosed during her hospitalization. She was discharged to rehab on 02/26/2018. She received empiric broad spectrum antibiotic, which was changed to Cipro and Flagyl. She was also on prednisone for ulcerative colitis. She had prior workup by Dr. García as an outpatient. Currently, she denies chest pains, palpitation. No dizziness or loss of consciousness. No fever, chills or cough. REVIEW OF SYSTEMS: The rest of the 12-point system is otherwise unremarkable. PAST MEDICAL HISTORY: As above, as well as history of GERD, allergic rhinitis, osteoarthritis. PAST SURGICAL HISTORY: Significant for left hip replacement, bilateral knee replacement, brain aneurysm surgery and colonoscopy. FAMILY HISTORY: Noncontributory. SOCIAL HISTORY: Rehab . Denies ETOH, tobacco, or drug abuse. OBJECTIVE DATA: VITAL SIGNS: Blood pressure is 120/93, heart rate 81, respirations 18, temperature 98.1 degrees Fahrenheit. GENERAL: Alert and oriented female, in no apparent distress. NECK: Supple. Jugular veins not distended. CHEST: Coarse without crackles. CARDIOVASCULAR: Heart sounds are regular to rate and rhythm. No murmur or gallop. ABDOMEN: Benign. Bowel sounds positive. EXTREMITIES: Lower extremities without edema, clubbing or cyanosis. Pulses are adequate. NEUROLOGIC: The patient is nonfocal. MUSCULOSKELETAL: Without joint swelling or deformities. SKIN: Without rash. DATABASE: EKGs reviewed. Initial EKG from 02/28/2018 reveals multifocal atrial tachycardia. Subsequent EKG from 02/28/2018 at 12:32 a.m. with nerve complex regular tachycardia with P waves following the QRS at about 80 milliseconds. LABORATORY DATA: White count is 10.8, hemoglobin 10.3, platelet count is 233, 000. Sodium 130, potassium 3.9, BUN is 13, creatinine 0.79. Chest CT from 03/2018 is with no PE, some left pleural effusion and some ground glass opacities, chronic lung changes only. ASSESSMENT AND PLAN: Ms. Bennett is a pleasant 87-year-old woman with history of recent deep vein thrombosis, also has a colitis, remote brain aneurysm. She might have atrial fibrillation as well. Currently, she is well anticoagulated with Eliquis. She has presented with rapid rates and initially with multifocal atrial arrhythmia, eventually a narrow complex regular tachycardia, was very rapid for her age 218 beats per minute, that she is now controlled with diltiazem. The differential diagnosis for narrow complex tachycardia is either AV cherelle oriented tachycardia versus less likely AVRT, but also atrial tachycardia is also a possibility. Atypical atrial flutter could also possible, though would not be typical for that. AV cherelle reentrant tachycardia would be very simle ablation for this lady. I am somewhat hesitant hence her advanced age, but we could consider this alternatively current medical suppression also not unreasonable. We will discuss with Dr. García and the family for the treatment options. If anti-medication necessary, Multaq versus sotalol both could be considered. NICOLAS
--- NOTE | 2018-03-01 17:38 | ULT ---
BILATERAL LOWER EXTREMITY VENOUS ULTRASOUND WITH DOPPLER: HISTORY: The patient is planned for an EP procedure. Pre-procedure exam. COMPARISON: 02/19/2018 TECHNIQUE: Adair-scale, color-flow, and Doppler imaging with spectral wave-form analysis was performed of the lef t and right lower extremity venous system. FINDINGS: LEFT LOWER EXTREMITY: There is compressibility, presence of flow, and augmentation in the common fem oral vein, femoral vein, and popliteal vein. There is flow in the greater saphenous vein, profunda v ein, and posterior tibial vein. RIGHT LOWER EXTREMITY: The right common femoral vein compresses. There is also compressibility in t he femoral vein and popliteal vein. There is flow in the greater saphenous vein, profunda vein, and posterior tibial vein. There is also flow in the common femoral vein and femoral vein. IMPRESSION: Compressibility in the right common femoral vein with evidence of flow. No evidence of a previously identified right common femoral vein thrombus. POS: [facility]
[2018-03-02 05:05] LABS: #Basophils 0.1 thou/uL (0.0-0.2); #Eosinphils 0.2 thou/uL (0.0-0.7); #Lymphocytes 3.5 thou/uL (1.20-3.40); #Monocytes 0.8 thou/uL (0.11-0.59); #Neutrophils 4.2 thou/uL (1.40-6.50); %Eosinophils 1.8 % (0.0-10.0); %Lymphocytes 39.7 % (21.0-51.0); %Monocytes 9.4 % (0.0-10.0); %Neutrophils 48.1 % (42.0-75.0); Hemoglobin 10.6 g/dL (12.0-16.0); Mean Corpuscular Hemoglobin 30.7 pg (27.0-31.0); Mean Corpuscular Volume 93.1 fl (81.0-99.0); Mean Platelet Volume 7.6 fL (7.4-10.4); Platelet Count 264 thou/uL (130-400); RBC Distribution Width 14.2 % (11.5-14.5); Red Blood Cell (RBC) Count 3.44 mill/uL (4.20-5.40); White Blood Cell (WBC) Count 8.8 thou/uL (4.8-10.8)
[2018-03-02 05:17] LABS: Anion Gap 9 mmol/L (10-20); BUN (Urea Nitrogen) 15 mg/dL (9.8-20.1); Calc. Creatinine Clearance 52 mL/min (70-130); Calcium 8.2 mg/dL (7.8-10.44); Carbon Dioxide 31 mmol/L (23-31); Chloride 103 mmol/L (98-107); Estimated GFR-MDRD 67; Glucose 84 mg/dL (83-110); Magnesium 1.5 mg/dL (1.6-2.6); Sodium 140 mmol/L (136-145)
[2018-03-02] MEDS: Metoprolol Tartrate 25 MG TAB PO SCH ×2 (05:51→20:31)
[2018-03-02] MEDS ORDERED: Magnesium 2 GM/NS 0.9% 100 ML 2 GM in Premix Bag 1 BAG IVPB SCH (08:15)
--- NOTE | 2018-03-02 10:39 | PRG ---
DATE OF SERVICE: 03/02/2018 SUBJECTIVE: Ms. Bennett is resting. She is scheduled for ablation later today. No chest pain or pressure. PHYSICAL EXAMINATION: VITAL SIGNS: Blood pressure 139/60 and pulse 64 and regular. LUNGS: Clear. CARDIAC: Normal S1 and S2. ASSESSMENT: 1. 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 2. May also have some atrial tachycardia. It is unclear. PLAN: She would undergo SVT ablation today, probably back to rehab tomorrow. Follow up as well.
--- NOTE | 2018-03-02 11:38 | PDOC.PN ---
- Subjective Encounter Start Date: 03/02/18 Encounter Start Time: 08:45 Pt sleepy but arousable, no acute overnight events, case discussed with Shanta velásquez. Son not at bedside, will call later if he isnt inthe room. Seen by Dr Nevarez, initially wanted to try medical management, but later scheduled pt for EP study and ablation for this afternoon. rate has been well controlled. No f/C, no N/Vd/c, weaning off of O2. no new complaints, NPo for EP study All systems reviewed and neg except as above - Objective Resuscitation Status: Resuscitation Status FULL:Full Resuscitation MAR Reviewed: Yes Vital Signs & Weight: Vital Signs (12 hours) Temp Pulse Resp BP Pulse Ox 03/02/18 10:48 97.6 F 64 14 116/55 L 94 L 03/02/18 08:06 97.9 F 65 18 139/60 97 03/02/18 04:00 96.9 F L 63 20 123/57 L 97 Weight Admit Weight 158 lb 3 oz Weight 154 lb I&O: 03/01/18 03/02/18 03/03/18 06:59 06:59 06:59 Intake Total 360 360 Output Total 1 Balance 360 359 Result Diagrams: 03/02/18 04:18 03/02/18 04:18 EKG Reviewed by me: Yes Phys Exam - Physical Examination Constitutional: NAD HEENT: PERRLA, moist MMs, sclera anicteric, oral pharynx no lesions Neck: no nodes, no JVD, supple, full ROM Respiratory: no wheezing, no rales, no rhonchi, clear to auscultation bilateral Cardiovascular: RRR, no significant murmur, no rub Gastrointestinal: soft, non-tender, no distention, positive bowel sounds Musculoskeletal: pulses present, edema present tender to palpation with BLE edema Neurological: non-focal, normal sensation, moves all 4 limbs globally weak 3-4/5 Lymphatic: no nodes Psychiatric: normal affect, A&O x 3 Skin: no rash, normal turgor, cap refill <2 seconds Dx/Plan (1) Abdominal pain Code(s): R10.9 - UNSPECIFIED ABDOMINAL PAIN Status: Acute Qualifiers: Abdominal location: epigastric Qualified Code(s): R10.13 - Epigastric pain (2) Moderate protein-calorie malnutrition Code(s): E44.0 - MODERATE PROTEIN-CALORIE MALNUTRITION Status: Chronic Comment: supplement, ask nutrition to see (3) Abscess of sigmoid colon Code(s): K63.0 - ABSCESS OF INTESTINE Status: Acute Comment: with diverticulitis. CCM with antibiotics, CT 02/18 and repeat 02/22 with abscess 1.7cm. too soon to repeat would plan on 4 weeks abx with repeat imaging then, and continue reimaging q 2 weeks until compeltely resolved then stop abx (4) DVT (deep venous thrombosis) Code(s): I82.409 - ACUTE EMBOLISM AND THOMBOS UNSP DEEP VN UNSP LOWER EXTREMITY Status: Acute Qualifiers: DVT location: lower extremity Affected thrombotic vein of extremity: femoral Chronicity: acute Laterality: right Qualified Code(s): I82.411 - Acute embolism and thrombosis of right femoral vein Comment: on eliquis, CTA negative for PE, no afib. eliquis stopped (5) CKD (chronic kidney disease), stage III Status: Chronic (6) Dementia Code(s): F03.90 - UNSPECIFIED DEMENTIA WITHOUT BEHAVIORAL DISTURBANCE Status: Chronic Qualifiers: Dementia type: unspecified type Dementia behavioral disturbance: without behavioral disturbance Qualified Code(s): F03.90 - Unspecified dementia without behavioral disturbance (7) GERD (gastroesophageal reflux disease) Code(s): K21.9 - GASTRO-ESOPHAGEAL REFLUX DISEASE WITHOUT ESOPHAGITIS Status: Chronic Qualifiers: Esophagitis presence: esophagitis presence not specified Qualified Code(s) : K21.9 - Gastro-esophageal reflux disease without esophagitis (8) H/O ulcerative colitis Code(s): Z87.19 - PERSONAL HISTORY OF OTHER DISEASES OF THE DIGESTIVE SYSTEM Status: Chronic (9) Hypertension Code(s): I10 - ESSENTIAL (PRIMARY) HYPERTENSION Status: Chronic Qualifiers: Hypertension type: essential hypertension Qualified Code(s): I10 - Essential (primary) hypertension (10) Osteoarthritis Code(s): M19.90 - UNSPECIFIED OSTEOARTHRITIS, UNSPECIFIED SITE Status: Chronic Qualifiers: Osteoarthritis location: multiple joints (11) Multifocal atrial tachycardia Code(s): I47.1 - SUPRAVENTRICULAR TACHYCARDIA Status: Acute Comment: new onset, EP study and alblation by Dr Nevarez later today - Plan * . anticipate discharge tomorrow back to rehab if stable
[2018-03-02] MEDS ORDERED: Nystatin Powder 15 GM BOT TOP PRN (12:25)
[2018-03-02] MEDS ORDERED: Lidocaine 1% (PF) 30 ML VIAL ONE (13:03)
[2018-03-02] MEDS ORDERED: Midazolam HCl 2 mg/2 ml Vial ONE (13:30)
[2018-03-02] MEDS ORDERED: Fentanyl 100 MCG/2 ML VIAL ONE (13:31)
[2018-03-02] MEDS ORDERED: PROPOFOL 200 MG/20 ML VIAL ONE (14:07)
[2018-03-02] MEDS ORDERED: Hydrocortisone Sod Succ/PF 100 mg/2 ml Vial ONE (14:07)
[2018-03-02] MEDS ORDERED: Isoproterenol 0.2 MG/1 ML AMP ONE (14:08)
[2018-03-02] MEDS: metroNIDAZOLE 500 MG TAB PO SCH ×3 (16:49→20:31)
[2018-03-02] MEDS: Potassium Chloride 20 MEQ TAB PO SCH ×3 (16:49→20:31)
[2018-03-02] MEDS: Cipro 250 MG TAB PO SCH ×2 (16:53→20:30)
[2018-03-02] MEDS: predniSONE 20 MG TAB PO SCH (17:03)
[2018-03-02] MEDS: Furosemide 20 MG/2 ML VIAL SLOW IVP SCH (17:04)
[2018-03-02] MEDS: Spironolactone 25 MG TAB PO SCH (17:04)
[2018-03-02] MEDS: Saccharomyces boulardii 250 MG CAP PO SCH (17:04)
[2018-03-02] MEDS ORDERED: Potassium Chloride 20 MEQ TAB PO SCH (17:15)
[2018-03-02] MEDS: Apixaban 5 MG TAB PO SCH (20:31)
[2018-03-03] MEDS: Potassium Chloride 20 MEQ TAB PO SCH (01:45)
[2018-03-03 05:23] LABS: #Lymphocytes 2.2 thou/uL (1.20-3.40); #Monocytes 0.6 thou/uL (0.11-0.59); #Neutrophils 6.1 thou/uL (1.40-6.50); %Basophils 0.2 % (0.0-1.0); %Eosinophils 0.1 % (0.0-10.0); %Lymphocytes 24.6 % (21.0-51.0); %Monocytes 6.7 % (0.0-10.0); %Neutrophils 68.4 % (42.0-75.0); Hemoglobin 10.9 g/dL (12.0-16.0); Mean Corpuscular HGB CONC 30.9 g/dL (32.0-36.0); Mean Corpuscular Hemoglobin 29.5 pg (27.0-31.0); Mean Corpuscular Volume 95.6 fl (81.0-99.0); Mean Platelet Volume 8.2 fL (7.4-10.4); Platelet Count 252 thou/uL (130-400); RBC Distribution Width 14.2 % (11.5-14.5); White Blood Cell (WBC) Count 8.9 thou/uL (4.8-10.8)
[2018-03-03 06:01] LABS: Anion Gap 10 mmol/L (10-20); BUN (Urea Nitrogen) 21 mg/dL (9.8-20.1); Calc. Creatinine Clearance 46 mL/min (70-130); Carbon Dioxide 24 mmol/L (23-31); Chloride 109 mmol/L (98-107); Estimated GFR-MDRD 57; Glucose 110 mg/dL (83-110); Magnesium 1.9 mg/dL (1.6-2.6); Potassium 4.9 mmol/L (3.5-5.1); Sodium 138 mmol/L (136-145)
[2018-03-03] MEDS: Cipro 250 MG TAB PO SCH ×2 (06:09→21:01)
[2018-03-03] MEDS: Metoprolol Tartrate 25 MG TAB PO SCH ×2 (08:51→21:00)
[2018-03-03] MEDS: predniSONE 5 MG TAB PO SCH (08:51)
[2018-03-03] MEDS: Apixaban 5 MG TAB PO SCH ×3 (08:51→21:33)
[2018-03-03] MEDS: Spironolactone 25 MG TAB PO SCH (08:51)
[2018-03-03] MEDS: metroNIDAZOLE 500 MG TAB PO SCH ×3 (08:51→21:01)
[2018-03-03] MEDS: Saccharomyces boulardii 250 MG CAP PO SCH (08:51)
[2018-03-03] MEDS ORDERED: predniSONE 1 MG/ML ML PO SCH (09:00)
[2018-03-03] MEDS: Furosemide 20 MG TAB PO SCH (09:06)
--- NOTE | 2018-03-03 09:30 | OP ---
DATE OF PROCEDURE: 03/02/2018 ELECTROPHYSIOLOGY STUDY AND RADIOFREQUENCY ABLATION REPORT REFERRING PHYSICIAN: Dr. Zarate and Kait García M.D. REASON FOR PROCEDURE: Ms. Bennett is an 87-year-old woman who had a history of a right-sided venous thrombosis and treated with Eliquis with the followup echo did not show evidence of clot present in t he right femoral vein as before. On the other hand, she presented with atrial tachyarrhythmias. Ini tial multifocal atrial tachycardia converted to very rapid SVT at 218 beats per minute. She is here today for a potential ablation procedure. PROCEDURE IN DETAIL: The patient received deep sedation by Anesthesia specialist. After adequate se dation achieved, the left femoral venous area was prepped, draped and anesthetized using subcutaneous lidocaine. With ultrasound guidance, the left femoral vein was cannulated x2. Two 8-Turkmen short s heaths were introduced through which an octapolar catheter was advanced to the RV, His bundle and rig ht atrial position and a decapolar catheter was advanced to the CS position. Pacing, mapping and rec ording were performed in each location with the following findings. Baseline cycle length is 940 mil liseconds, the AH is 161, HV is 48, [place] is 209, QRS is narrow about 80 milliseconds. The sinus node r ecovery time was 1300 milliseconds. The corrected sinus node recovery time was about 360 millisecond s. AV Wenckebach cycle length was 420 milliseconds without preexcitation. Retrograde Wenckebach cyc le length was 550 milliseconds, which was concentric. Retrograde VA activation is noted. The AV nod e ERP was 600/300, although no definite dual AV cherelle pathway was present at this time. With burst a trial pacing though, slow pathway was demonstrated antegradely. Following that, burst atrial pacing was performed and nonsustained atrial flutter was also noted. Following that, the isuprel was administered initially 4 and then decrease to 2 mcg per kg per minute . With burst atrial pacing, we were able to induce a narrow complex tachycardia presenta tion with VA timing less than 18 milliseconds. Overdrive ventricular pacing terminated the arrhythmi as. Following that, the CS catheter was removed and instead a 4 mm ablation catheter was advanced to the right atrium. A 3D map of the right atrium and His bundle area and CS also was obtained. Follo wing that, multiple medel were delivered at the slow pathway area, 10 ablation points were delivered in the slow pathway area. Junctional beats were also observed at the last burn. No AV block was demonstrated. After the ablation, AV cherelle reentry remained the same. Total ablatio n duration was 322 milliseconds. Following this, the repeat testing was performed. The AV cherelle ERP did not have any changes, 600/300 and the AV Wenckebach cycle length was 420 milliseconds as well. On isuprel though, no AV cherelle ree ntry was inducible. Excess to my testing were previously noted echo beats were not present anymore. CONCLUSION: 1. 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 2. Ablation of slow pathway eliminated the arrhythmia. PLAN: Continue with routine postoperative management. Monitor for recurrence of atrial fibrillation .
--- NOTE | 2018-03-03 09:31 | PRG ---
DATE OF SERVICE: 03/03/2018 SUBJECTIVE: Ms. Bennett is resting comfortably this morning. No complaints, no chest pain or pressu re. OBJECTIVE: VITAL SIGNS: Blood pressure 120/60; pulse 66, it is sinus on the monitor. LUNGS: Clear. CARDIAC: Normal S1, normal S2. EXTREMITIES: There is no edema. The groins do not have hematoma. ASSESSMENT: 1. 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 2. Paroxysmal atrial fibrillation. 3. History of deep venous thrombosis. 4. Hypokalemia, resolved. PLAN: 1. She is on metoprolol 25 mg twice a day. 2. Spironolactone 25 mg a day. 3. Furosemide 20 mg a day. 4. Apixaban 5 mg twice a day. 5. Okay to be released.
--- NOTE | 2018-03-03 09:47 | PRG ---
DATE OF SERVICE: 03/03/2018 SUBJECTIVE: Ms. Bennett seems to be doing fair one day after her ablation procedure. No issue of he matoma. No palpitations noted. PHYSICAL EXAMINATION: VITAL SIGNS: Blood pressure is 131/58, heart rate 98, respiratory rate 16, temperature 97.4 degrees Fahrenheit. GENERAL: This is an alert and oriented woman in no apparent distress. NECK: Supple. Jugular veins are not distended. CHEST: Coarse without crackles. HEART: Heart sounds are regular rate and rhythm. No murmur or gallop. ABDOMEN: Benign. Bowel sounds positive. EXTREMITIES: Lower extremity edema. No clubbing or cyanosis. Left femoral venous access site witho ut significant hematoma. DATEBASE: Telemetry strips reviewed with sinus rhythm. No atrial fibrillation or ST-T is seen. Hem oglobin 10.9, unchanged. White cell count is 8.9, platelet count is 252. Electrolytes in good range . ASSESSMENT AND PLAN: Ms. Bennett is a pleasant 87-year-old woman with prior history of DVT who prese nted with a multifocal atrial arrhythmias on one EKG, suddenly developing a rapid narrow complex SVT. She underwent an EP study demonstrating AV cherelle reentry tachycardia and the slow pathway was modif ied limiting AV not inducibility. She tolerated the procedure well and she is stable for discharge today. I will have to see her back in 6 weeks for a followup.
--- NOTE | 2018-03-03 10:03 | DIS ---
PRIMARY CARE PHYSICIAN: Dr. Darius Molina DATE OF ADMISSION: 02/28/2018 DATE OF DISCHARGE: 03/03/2018 DISCHARGE DIAGNOSES: 1. Paroxysmal atrial fibrillation. 2. Multifocal atrial tachycardia. 3. Recent deep venous thrombosis. 4. Status post electrophysiology study and ablation. 5. Diverticular abscess, 1.7 cm right lower quadrant, stable. Last scan on 01/26/2018. 6. Chronic diastolic congestive heart failure. 7. Physical deconditioning. 8. Moderate protein calorie malnutrition, present on admission. 9. History of erosive esophagitis and duodenal ulcer. 10. Essential hypertension. 11. Osteoarthritis. 12. Chronic kidney disease stage 3. 13. Gastroesophageal reflux disease. 14. Dementia. CONSULTATIONS: 1. Cardiology, Dr. Kait García 2. Electrophysiology, Dr. Bro Nevarez PROCEDURES: 1. Electrophysiology study and radiofrequency ablation multifocal atrial tachycardia, 03/02/[address] Nevarez. 2. Echocardiogram 2D on 03/01/2018 that showed EF 55-60%, grade 1-3 diastolic dysfunction, mild conc entric LVH, dilated RV and normal RV systolic function, mild MR, mild AI, mild TR, and mitral annular calcification. 3. CT angiogram 02/28/2018 negative for pulmonary embolus. 4. Lower extremity ultrasound 03/01/2018 that was negative for DVT. HOSPITAL COURSE: Ms. Bennett is a pleasant 87-year-old female recently here for DVT and recently adm itted and discharged to inpatient rehab after being diagnosed with a diverticular abscess. Regarding that, she had a CT scan on 02/18/2018 and a repeat on 02/22/2018 that showed a 1.7 cm right lower lucas drant fluid collection that is stable. She was started on Cipro and Flagyl and discharged to the [facility]. She came back and was readmitted on 02/28/2018 after presenting with a rapid heart rate at 218 beats a minute. She was initially felt to be in atrial fibrillation with RVR, and Cardiology was consulted . Dr. García reviewed EKG tracings and felt it was more likely a multifocal atrial tachycardia and r equested consultation by Dr. Nevarez. He did see her on 03/01/2018 and felt that she may be able to be managed medically, but later decided to go ahead and take her for an EP study on 03/02/2018. She remained stable from 02/28/2018 to 03/02/2018, and went to the EP lab. There he was not able to induce any prolonged atrial fibrillation, but did ablate her for AV cherelle reentry tachycardia/SVT. S he has had a normal heart rate since and is otherwise stable for discharge back to [facility]. Today, she is back to her baseline and stable for discharge back to inpatient rehab at [facility]. PHYSICAL EXAMINATION: The patient was seen and examined on the day of discharge. Discharge plan and disposition was discussed with the patient at the bedside, her son was also contacted as well. NEW MEDICATIONS: None. MEDICATIONS TO RESUME: 1. Tylenol p.r.n. 2. Maalox 30 mL p.o. q.6 hours p.r.n. 3. Eliquis 5 mg p.o. b.i.d. to start after 5 days at 10 mg b.i.d. 4. Cipro 500 mg p.o. b.i.d. We will continue. 5. Flagyl 500 mg p.o. q.6h. We continue Cipro and Flagyl for a minimum of 4 weeks from initiation an d repeat CT scan at the end of February. If her abscess is resolved, can stop, but if it persists, would continue until completely resolved radiographically with repeat imaging every 2 weeks at that point. 6. Lasix 20 mg p.o. daily. 7. Imodium p.r.n. 8. Humira 40 mg subcu every 2 weeks. I believe it is due around the . 9. Claritin 10 mg p.o. daily p.r.n. allergies. 10. Metoprolol tartrate 25 mg p.o. b.i.d. 11. Change her metronidazole from q.i.d. to t.i.d. 12. Nystatin topical powder to affected intertriginous areas as needed. 13. Zofran 4 mg p.o. significant nausea, vomiting. 14. Protonix 40 mg p.o. daily. 15. Prednisone decreased to 5 mg daily. 16. Florastor 250 mg daily. 17. Aldactone 25 mg p.o. q.a.m. FOLLOWUP APPOINTMENTS 1. Dr. Molina within a week. 2. Dr. García in 2-[address] Nevarez in 2 weeks. DISCHARGE CONDITION: Stable. DISPOSITION: Being discharged to [facility] for inpatient rehabilitation. DISCHARGE ACTIVITY: Per cardiopulmonary limits. DISCHARGE DIET: Heart healthy recommended.
[2018-03-04] MEDS: Cipro 250 MG TAB PO SCH ×2 (05:48→22:31)
--- NOTE | 2018-03-04 08:25 | PRG ---
DATE OF SERVICE: 03/04/2018 SUBJECTIVE: Ms. Bennett is resting comfortably, no complaints. PHYSICAL EXAMINATION: VITAL SIGNS: Blood pressure 115/60, pulse 80. LUNGS: Clear. CARDIAC: Normal S1 and S2. ABDOMEN: Soft and nontender. ASSESSMENT: 1. Status post supraventricular tachycardia ablation. 2. History of deep venous thrombosis. 3. Short episodes of atrial fibrillation by report. PLAN: 1. She is on metoprolol 25 mg twice a day. 2. Apixaban 5 mg twice a day. 3. Okay to be moved off telemetry. 4. She is also on furosemide 20 mg a day orally and Spironolactone 25 mg a day. Potassium yesterday was 4.9, we will go ahead and order base met tomorrow.
[2018-03-04] MEDS: Apixaban 5 MG TAB PO SCH ×2 (09:31→21:00)
[2018-03-04] MEDS: Saccharomyces boulardii 250 MG CAP PO SCH (09:31)
[2018-03-04] MEDS: Spironolactone 25 MG TAB PO SCH (09:31)
[2018-03-04] MEDS: metroNIDAZOLE 500 MG TAB PO SCH ×3 (09:31→21:00)
[2018-03-04] MEDS: predniSONE 5 MG TAB PO SCH (09:31)
[2018-03-04] MEDS: Metoprolol Tartrate 25 MG TAB PO SCH ×2 (09:31→21:00)
[2018-03-04] MEDS: Furosemide 20 MG TAB PO SCH (09:31)
--- NOTE | 2018-03-04 10:43 | PDOC.PN ---
- Subjective Encounter Start Date: 03/04/18 Encounter Start Time: 09:20 Pt more awake today, looks weak. deneis CP, palpitations, feels SOB when moving. Has not been out of bed Did not discharge yesterday as expected due to need for reapproval bu [employer]. Ricky has cleared for transfer to medical floor. No F/C, no N/V/D/C, no new complaints. Nursing reports not eating well. All systems reviewed and neg except as above - Objective Resuscitation Status: Resuscitation Status FULL:Full Resuscitation MAR Reviewed: Yes Vital Signs & Weight: Vital Signs (12 hours) Temp Pulse Pulse Resp BP Pulse Ox Pulse Ox 03/04/18 09:28 97.5 F L 60 20 128/58 L 99 03/04/18 08:49 56 L 94 L 03/04/18 07:39 97.2 F L 65 18 03/04/18 03:24 97.2 F L 65 18 130/63 95 03/04/18 00:00 97.5 F L 80 18 115/56 L 98 Weight Admit Weight 158 lb 3 oz Weight 156 lb I&O: 03/03/18 03/04/18 03/05/18 06:59 06:59 06:59 Intake Total 340 75 Balance 340 75 Result Diagrams: 03/03/18 04:51 03/03/18 04:51 Radiology Reviewed by me: Yes EKG Reviewed by me: Yes Phys Exam - Physical Examination Constitutional: NAD tired, chronically ill-appearing HEENT: PERRLA, moist MMs, sclera anicteric, oral pharynx no lesions Neck: no nodes, no JVD, supple, full ROM Respiratory: no wheezing, no rales, no rhonchi, clear to auscultation bilateral Cardiovascular: RRR, no significant murmur, no rub Gastrointestinal: soft, non-tender, no distention, positive bowel sounds Musculoskeletal: pulses present, edema present Neurological: non-focal, normal sensation, moves all 4 limbs Lymphatic: no nodes Skin: no rash, normal turgor, cap refill <2 seconds Dx/Plan (1) Multifocal atrial tachycardia Code(s): I47.1 - SUPRAVENTRICULAR TACHYCARDIA Status: Acute Comment: ANVRT per Dr phillips. S/P study and ablation, BBLocker, stable (2) Abscess of sigmoid colon Code(s): K63.0 - ABSCESS OF INTESTINE Status: Acute Comment: with diverticulitis. CCM with antibiotics, CT 02/18 and repeat 02/22 with abscess 1.7cm. too soon to repeat would plan on 4 weeks abx with repeat imaging then, and continue reimaging q 2 weeks until compeltely resolved then stop abx (3) Moderate protein-calorie malnutrition Code(s): E44.0 - MODERATE PROTEIN-CALORIE MALNUTRITION Status: Chronic Comment: supplement, ask nutrition to see (4) Abdominal pain Code(s): R10.9 - UNSPECIFIED ABDOMINAL PAIN Status: Resolved Qualifiers: Abdominal location: epigastric Qualified Code(s): R10.13 - Epigastric pain (5) DVT (deep venous thrombosis) Code(s): I82.409 - ACUTE EMBOLISM AND THOMBOS UNSP DEEP VN UNSP LOWER EXTREMITY Status: Acute Qualifiers: DVT location: lower extremity Affected thrombotic vein of extremity: femoral Chronicity: acute Laterality: right Qualified Code(s): I82.411 - Acute embolism and thrombosis of right femoral vein Comment: on eliquis, CTA negative for PE, no afib. eliquis stopped (6) CKD (chronic kidney disease), stage III Status: Chronic (7) Dementia Code(s): F03.90 - UNSPECIFIED DEMENTIA WITHOUT BEHAVIORAL DISTURBANCE Status: Chronic Qualifiers: Dementia type: unspecified type Dementia behavioral disturbance: without behavioral disturbance Qualified Code(s): F03.90 - Unspecified dementia without behavioral disturbance (8) GERD (gastroesophageal reflux disease) Code(s): K21.9 - GASTRO-ESOPHAGEAL REFLUX DISEASE WITHOUT ESOPHAGITIS Status: Chronic Qualifiers: Esophagitis presence: esophagitis presence not specified Qualified Code(s) : K21.9 - Gastro-esophageal reflux disease without esophagitis (9) H/O ulcerative colitis Code(s): Z87.19 - PERSONAL HISTORY OF OTHER DISEASES OF THE DIGESTIVE SYSTEM Status: Chronic (10) Hypertension Code(s): I10 - ESSENTIAL (PRIMARY) HYPERTENSION Status: Chronic Qualifiers: Hypertension type: essential hypertension Qualified Code(s): I10 - Essential (primary) hypertension (11) Osteoarthritis Code(s): M19.90 - UNSPECIFIED OSTEOARTHRITIS, UNSPECIFIED SITE Status: Chronic Qualifiers: Osteoarthritis location: multiple joints - Plan * .
--- NOTE | 2018-03-04 11:02 | PDOC.CTH ---
<Leela Wen - Last Filed: 03/04/18 10:59> Cardiology Progress Note - Subjective EP progress note: Patient seen and evaluated. Being transferred to medical floor this AM. Denies any heart racing, palpitations, dizziness, or chest pain. No cardiac concerns or complaints. + B/L Groin tenderness - Objective Vital Signs Temp Pulse Pulse Resp BP Pulse Ox Pulse Ox 03/04/18 09:28 97.5 F L 60 20 128/58 L 99 03/04/18 08:49 56 L 94 L 03/04/18 07:39 97.2 F L 65 18 03/04/18 03:24 97.2 F L 65 18 130/63 95 03/04/18 00:00 97.5 F L 80 18 115/56 L 98 Admit Weight 158 lb 3 oz Weight 156 lb 03/03/18 03/04/18 03/05/18 06:59 06:59 06:59 Intake Total 340 75 Balance 340 75 - Physical Examination General/Neuro: alert & oriented x3, NAD Neck: no JVD present Lungs: CTA, unlabored respirations Heart: RRR Abdomen: NT/ND, soft - Telemetry Telemetry Rhythm: Sinus bradycardia - Labs Result Diagrams: 03/03/18 04:51 03/03/18 04:51 Troponin/CKMB CK-MB (CK-2) 1.2 ng/mL (0-6.6) 02/28/18 20:55 Troponin I 0.060 ng/mL (< 0.028) H 02/28/18 20:55 - Assessment/Plan 1. Multifocal atrial tachycardia into rapid SVT. 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 Now maintaining NSR but rates are sustaining in the 50 bpm range, assymptomatic. May need less beta roxanne now that AVNRT has been ablated. Currently on metoprolol 25mg QD. 2. History of paroxysmal atrial fibrillation-continue OAC 3. DVT of RFV on OAC with Eliquis 5mg BID OK for DC by EP. Request OP follow up in 4-6 weeks. <Bro Nevarez - Last Filed: 03/04/18 12:56> Cardiology Progress Note - Objective Vital Signs Temp Pulse Pulse Resp BP Pulse Ox Pulse Ox 03/04/18 09:28 97.5 F L 60 20 128/58 L 99 03/04/18 08:49 56 L 94 L 03/04/18 07:39 97.2 F L 65 18 03/04/18 03:24 97.2 F L 65 18 130/63 95 Admit Weight 158 lb 3 oz Weight 156 lb 03/03/18 03/04/18 03/05/18 06:59 06:59 06:59 Intake Total 340 75 Balance 340 75 - Labs Result Diagrams: 03/03/18 04:51 03/03/18 04:51 Troponin/CKMB CK-MB (CK-2) 1.2 ng/mL (0-6.6) 02/28/18 20:55 Troponin I 0.060 ng/mL (< 0.028) H 02/28/18 20:55 Attending Addendum - Attending Addendum Date/Time: 03/04/18 1944 I personally evaluated the patient and discussed the management with Ms Wen. I agree with the History, Examination, Assessment and Plan documented above with any addition or exceptions noted below.
[2018-03-05 04:52] LABS: Anion Gap 9 mmol/L (10-20); BUN (Urea Nitrogen) 20 mg/dL (9.8-20.1); Calc. Creatinine Clearance 42 mL/min (70-130); Calcium 7.8 mg/dL (7.8-10.44); Carbon Dioxide 29 mmol/L (23-31); Chloride 102 mmol/L (98-107); Estimated GFR-MDRD 52; Glucose 150 mg/dL (83-110); Potassium 3.9 mmol/L (3.5-5.1); Sodium 136 mmol/L (136-145)
[2018-03-05] MEDS: Cipro 250 MG TAB PO SCH ×2 (07:34→20:17)
[2018-03-05] MEDS: Furosemide 20 MG TAB PO SCH (08:59)
[2018-03-05] MEDS: Spironolactone 25 MG TAB PO SCH (08:59)
[2018-03-05] MEDS: Apixaban 5 MG TAB PO SCH ×2 (08:59→20:18)
[2018-03-05] MEDS: predniSONE 5 MG TAB PO SCH (08:59)
[2018-03-05] MEDS: metroNIDAZOLE 500 MG TAB PO SCH ×3 (08:59→20:18)
[2018-03-05] MEDS: Saccharomyces boulardii 250 MG CAP PO SCH (08:59)
[2018-03-05] MEDS: Metoprolol Tartrate 25 MG TAB PO SCH ×3 (08:59→20:18)
[2018-03-06 05:02] LABS: Hemoglobin 10.3 g/dL (12.0-16.0); Platelet Count 272 thou/uL (130-400)
[2018-03-06] MEDS: Cipro 250 MG TAB PO SCH ×2 (06:05→20:46)
[2018-03-06] MEDS: predniSONE 5 MG TAB PO SCH (09:05)
[2018-03-06] MEDS: Furosemide 20 MG TAB PO SCH (09:05)
[2018-03-06] MEDS: Saccharomyces boulardii 250 MG CAP PO SCH (09:05)
[2018-03-06] MEDS: Metoprolol Tartrate 25 MG TAB PO SCH ×2 (09:05→20:47)
[2018-03-06] MEDS: Apixaban 5 MG TAB PO SCH ×2 (09:05→20:46)
[2018-03-06] MEDS: Spironolactone 25 MG TAB PO SCH (09:05)
[2018-03-06] MEDS: metroNIDAZOLE 500 MG TAB PO SCH ×3 (09:05→20:47)
--- NOTE | 2018-03-06 12:37 | PDOC.PN ---
- Subjective Encounter Start Date: 03/05/18 Encounter Start Time: 08:00 Pt stable, awaiting insurance decision on rehab. no F/C, no N/V, weak still, not eating well. rehab notes reviewed Discussed with case management and with PT, pt strength is stable form last admit, pt doens't WANT to participate. All systems reviewed and neg x as above - Objective Resuscitation Status: Resuscitation Status FULL:Full Resuscitation Vital Signs & Weight: Vital Signs (12 hours) Temp Pulse Resp BP Pulse Ox 03/06/18 11:08 97.4 F L 64 16 101/57 L 98 03/06/18 07:34 97.6 F 81 18 113/56 L 100 03/06/18 03:00 95 Weight Admit Weight 158 lb 3 oz Weight 151 lb I&O: 03/05/18 03/06/18 03/07/18 06:59 06:59 06:59 Intake Total 560 85 Balance 560 85 Result Diagrams: 03/06/18 03:51 03/06/18 03:51 Phys Exam - Physical Examination Constitutional: NAD HEENT: PERRLA, moist MMs, sclera anicteric, oral pharynx no lesions Neck: no nodes, no JVD, supple, full ROM Respiratory: no wheezing, no rales, no rhonchi, clear to auscultation bilateral Cardiovascular: RRR, no rub Gastrointestinal: soft, non-tender, positive bowel sounds Musculoskeletal: pulses present, edema present Neurological: normal sensation, moves all 4 limbs Lymphatic: no nodes Psychiatric: normal affect Skin: no rash, normal turgor, cap refill <2 seconds Dx/Plan (1) Multifocal atrial tachycardia Code(s): I47.1 - SUPRAVENTRICULAR TACHYCARDIA Status: Resolved Comment: ANVRT per Dr phillips. S/P study and ablation, BBLocker, stable (2) Abscess of sigmoid colon Code(s): K63.0 - ABSCESS OF INTESTINE Status: Acute Comment: with diverticulitis. CCM with antibiotics, CT 02/18 and repeat 02/22 with abscess 1.7cm. too soon to repeat would plan on 4 weeks abx with repeat imaging then, and continue reimaging q 2 weeks until compeltely resolved then stop abx (3) Moderate protein-calorie malnutrition Code(s): E44.0 - MODERATE PROTEIN-CALORIE MALNUTRITION Status: Chronic Comment: supplement, ask nutrition to see (4) Abdominal pain Code(s): R10.9 - UNSPECIFIED ABDOMINAL PAIN Status: Resolved Qualifiers: Abdominal location: epigastric Qualified Code(s): R10.13 - Epigastric pain (5) DVT (deep venous thrombosis) Code(s): I82.409 - ACUTE EMBOLISM AND THOMBOS UNSP DEEP VN UNSP LOWER EXTREMITY Status: Chronic Qualifiers: DVT location: lower extremity Affected thrombotic vein of extremity: femoral Chronicity: acute Laterality: right Qualified Code(s): I82.411 - Acute embolism and thrombosis of right femoral vein Comment: on eliquis, CTA negative for PE, no afib. eliquis stopped. cards restarted due to history of past afib (6) CKD (chronic kidney disease), stage III Status: Chronic (7) Dementia Code(s): F03.90 - UNSPECIFIED DEMENTIA WITHOUT BEHAVIORAL DISTURBANCE Status: Chronic Qualifiers: Dementia type: unspecified type Dementia behavioral disturbance: without behavioral disturbance Qualified Code(s): F03.90 - Unspecified dementia without behavioral disturbance (8) GERD (gastroesophageal reflux disease) Code(s): K21.9 - GASTRO-ESOPHAGEAL REFLUX DISEASE WITHOUT ESOPHAGITIS Status: Chronic Qualifiers: Esophagitis presence: esophagitis presence not specified Qualified Code(s) : K21.9 - Gastro-esophageal reflux disease without esophagitis (9) H/O ulcerative colitis Code(s): Z87.19 - PERSONAL HISTORY OF OTHER DISEASES OF THE DIGESTIVE SYSTEM Status: Chronic (10) Hypertension Code(s): I10 - ESSENTIAL (PRIMARY) HYPERTENSION Status: Chronic Qualifiers: Hypertension type: essential hypertension Qualified Code(s): I10 - Essential (primary) hypertension (11) Osteoarthritis Code(s): M19.90 - UNSPECIFIED OSTEOARTHRITIS, UNSPECIFIED SITE Status: Chronic Qualifiers: Osteoarthritis location: multiple joints - Plan cont current plan of care, continue antibiotics, PT/OT, social media community manager, out of bed/ambulate * .
[2018-03-07] MEDS: Cipro 250 MG TAB PO SCH ×2 (05:27→20:37)
[2018-03-07 07:40] LABS: #Basophils 0.1 thou/uL (0.0-0.2); #Eosinphils 0.2 thou/uL (0.0-0.7); #Lymphocytes 4.4 thou/uL (1.20-3.40); #Monocytes 1.1 thou/uL (0.11-0.59); #Neutrophils 4.3 thou/uL (1.40-6.50); %Basophils 0.9 % (0.0-1.0); %Eosinophils 2.2 % (0.0-10.0); %Lymphocytes 43.9 % (21.0-51.0); %Monocytes 10.6 % (0.0-10.0); %Neutrophils 42.4 % (42.0-75.0); Hemoglobin 10.6 g/dL (12.0-16.0); Mean Corpuscular HGB CONC 31.7 g/dL (32.0-36.0); Mean Corpuscular Hemoglobin 29.8 pg (27.0-31.0); Mean Corpuscular Volume 94.2 fl (81.0-99.0); Mean Platelet Volume 7.7 fL (7.4-10.4); Platelet Count 269 thou/uL (130-400); RBC Distribution Width 14.2 % (11.5-14.5); Red Blood Cell (RBC) Count 3.56 mill/uL (4.20-5.40); White Blood Cell (WBC) Count 10.1 thou/uL (4.8-10.8)
[2018-03-07] MEDS: Apixaban 5 MG TAB PO SCH ×2 (07:50→07:51)
[2018-03-07] MEDS: Spironolactone 25 MG TAB PO SCH (07:51)
[2018-03-07] MEDS: Furosemide 20 MG TAB PO SCH (07:51)
[2018-03-07] MEDS: metroNIDAZOLE 500 MG TAB PO SCH ×3 (07:51→20:37)
[2018-03-07] MEDS: predniSONE 5 MG TAB PO SCH (07:51)
[2018-03-07 07:55] LABS: Anion Gap 7 mmol/L (10-20); BUN (Urea Nitrogen) 15 mg/dL (9.8-20.1); Calc. Creatinine Clearance 38 mL/min (70-130); Calcium 8.1 mg/dL (7.8-10.44); Carbon Dioxide 32 mmol/L (23-31); Chloride 103 mmol/L (98-107); Estimated GFR-MDRD 47; Glucose 97 mg/dL (83-110); Magnesium 1.3 mg/dL (1.6-2.6); Potassium 3.7 mmol/L (3.5-5.1); Sodium 138 mmol/L (136-145)
[2018-03-07] MEDS: Metoprolol Tartrate 25 MG TAB PO SCH ×2 (07:59→20:37)
[2018-03-07] MEDS: Saccharomyces boulardii 250 MG CAP PO SCH (08:19)
--- NOTE | 2018-03-07 14:06 | PDOC.PN ---
- Subjective Encounter Start Date: 03/06/18 Encounter Start Time: 14:25 No acute events, pt grumpy. no f/c, no n/v/d/c, doesnt want to really do anything. no acute events all systems reviewed and neg x as above - Objective Resuscitation Status: Resuscitation Status FULL:Full Resuscitation MAR Reviewed: Yes Vital Signs & Weight: Vital Signs (12 hours) Temp Pulse Resp BP Pulse Ox 03/07/18 08:00 97.3 F L 70 18 107/63 92 L 03/07/18 04:18 97.4 F L 71 16 110/62 95 Weight Admit Weight 158 lb 3 oz Weight 149 lb 12.8 oz I&O: 03/06/18 03/07/18 03/08/18 06:59 06:59 06:59 Intake Total 85 120 Balance 85 120 Result Diagrams: 03/07/18 07:29 03/07/18 07:29 Phys Exam - Physical Examination Constitutional: NAD sleeping, arousable HEENT: PERRLA, moist MMs, sclera anicteric, oral pharynx no lesions Neck: no nodes, no JVD, supple, full ROM Respiratory: no wheezing, no rales, no rhonchi, clear to auscultation bilateral Cardiovascular: RRR, no significant murmur, no rub Gastrointestinal: soft, non-tender, no distention, positive bowel sounds Musculoskeletal: pulses present, edema present Neurological: non-focal, normal sensation, moves all 4 limbs Lymphatic: no nodes Skin: no rash, normal turgor, cap refill <2 seconds Dx/Plan (1) Multifocal atrial tachycardia Code(s): I47.1 - SUPRAVENTRICULAR TACHYCARDIA Status: Resolved Comment: ANVRT per Dr phillips. S/P study and ablation, BBLocker, stable. no evidenc eof recurrence. to rehab at SNF (denied IPR by insurnace despite [id number] review). awaiting son to make a decision regarding facility (2) Abscess of sigmoid colon Code(s): K63.0 - ABSCESS OF INTESTINE Status: Acute Comment: with diverticulitis. CCM with antibiotics, CT 02/18 and repeat 02/22 with abscess 1.7cm. too soon to repeat would plan on 4 weeks abx with repeat imaging then, and continue reimaging q 2 weeks until compeltely resolved then stop abx (3) Moderate protein-calorie malnutrition Code(s): E44.0 - MODERATE PROTEIN-CALORIE MALNUTRITION Status: Chronic Comment: supplement, ask nutrition to see (4) Abdominal pain Code(s): R10.9 - UNSPECIFIED ABDOMINAL PAIN Status: Resolved Qualifiers: Abdominal location: epigastric Qualified Code(s): R10.13 - Epigastric pain (5) DVT (deep venous thrombosis) Code(s): I82.409 - ACUTE EMBOLISM AND THOMBOS UNSP DEEP VN UNSP LOWER EXTREMITY Status: Chronic Qualifiers: DVT location: lower extremity Affected thrombotic vein of extremity: femoral Chronicity: acute Laterality: right Qualified Code(s): I82.411 - Acute embolism and thrombosis of right femoral vein Comment: on eliquis, CTA negative for PE, no afib. eliquis stopped. cards restarted due to history of past afib (6) CKD (chronic kidney disease), stage III Status: Chronic (7) Dementia Code(s): F03.90 - UNSPECIFIED DEMENTIA WITHOUT BEHAVIORAL DISTURBANCE Status: Chronic Qualifiers: Dementia type: unspecified type Dementia behavioral disturbance: without behavioral disturbance Qualified Code(s): F03.90 - Unspecified dementia without behavioral disturbance (8) GERD (gastroesophageal reflux disease) Code(s): K21.9 - GASTRO-ESOPHAGEAL REFLUX DISEASE WITHOUT ESOPHAGITIS Status: Chronic Qualifiers: Esophagitis presence: esophagitis presence not specified Qualified Code(s) : K21.9 - Gastro-esophageal reflux disease without esophagitis (9) H/O ulcerative colitis Code(s): Z87.19 - PERSONAL HISTORY OF OTHER DISEASES OF THE DIGESTIVE SYSTEM Status: Chronic (10) Hypertension Code(s): I10 - ESSENTIAL (PRIMARY) HYPERTENSION Status: Chronic Qualifiers: Hypertension type: essential hypertension Qualified Code(s): I10 - Essential (primary) hypertension (11) Osteoarthritis Code(s): M19.90 - UNSPECIFIED OSTEOARTHRITIS, UNSPECIFIED SITE Status: Chronic Qualifiers: Osteoarthritis location: multiple joints - Plan * .
--- NOTE | 2018-03-07 14:07 | PDOC.PN ---
- Subjective Encounter Start Date: 03/07/18 Encounter Start Time: 14:45 no events, no changes, no new complaints. Much more awake and alert today denies CP or SOB, no n/V/D/C, no pains All systems reviewed and neg except as per HPI - Objective Resuscitation Status: Resuscitation Status FULL:Full Resuscitation MAR Reviewed: Yes Vital Signs & Weight: Vital Signs (12 hours) Temp Pulse Resp BP Pulse Ox 03/07/18 08:00 97.3 F L 70 18 107/63 92 L 03/07/18 04:18 97.4 F L 71 16 110/62 95 Weight Admit Weight 158 lb 3 oz Weight 149 lb 12.8 oz I&O: 03/06/18 03/07/18 03/08/18 06:59 06:59 06:59 Intake Total 85 120 Balance 85 120 Result Diagrams: 03/07/18 07:29 03/07/18 07:29 Phys Exam - Physical Examination Constitutional: NAD HEENT: PERRLA, moist MMs, sclera anicteric, oral pharynx no lesions Neck: no nodes, no JVD, supple, full ROM Respiratory: no wheezing, no rales, no rhonchi, clear to auscultation bilateral Cardiovascular: RRR, no significant murmur, no rub Gastrointestinal: soft, non-tender, no distention, positive bowel sounds Musculoskeletal: pulses present, edema present Neurological: non-focal, normal sensation, moves all 4 limbs Lymphatic: no nodes Psychiatric: normal affect, A&O x 3 Skin: no rash, normal turgor, cap refill <2 seconds Dx/Plan (1) Multifocal atrial tachycardia Code(s): I47.1 - SUPRAVENTRICULAR TACHYCARDIA Status: Resolved Comment: ANVRT per Dr phillips. S/P study and ablation, BBLocker, stable. no evidenc eof recurrence. to rehab at SNF (denied IPR by insurnace despite [id number] review). awaiting son to make a decision regarding facility (2) Abscess of sigmoid colon Code(s): K63.0 - ABSCESS OF INTESTINE Status: Acute Comment: with diverticulitis. CCM with antibiotics, CT 02/18 and repeat 02/22 with abscess 1.7cm. too soon to repeat would plan on 4 weeks abx with repeat imaging then, and continue reimaging q 2 weeks until compeltely resolved then stop abx (3) Moderate protein-calorie malnutrition Code(s): E44.0 - MODERATE PROTEIN-CALORIE MALNUTRITION Status: Chronic Comment: supplement, ask nutrition to see (4) Abdominal pain Code(s): R10.9 - UNSPECIFIED ABDOMINAL PAIN Status: Resolved Qualifiers: Abdominal location: epigastric Qualified Code(s): R10.13 - Epigastric pain (5) DVT (deep venous thrombosis) Code(s): I82.409 - ACUTE EMBOLISM AND THOMBOS UNSP DEEP VN UNSP LOWER EXTREMITY Status: Chronic Qualifiers: DVT location: lower extremity Affected thrombotic vein of extremity: femoral Chronicity: acute Laterality: right Qualified Code(s): I82.411 - Acute embolism and thrombosis of right femoral vein Comment: on eliquis, CTA negative for PE, no afib. eliquis stopped. cards restarted due to history of past afib (6) CKD (chronic kidney disease), stage III Status: Chronic (7) Dementia Code(s): F03.90 - UNSPECIFIED DEMENTIA WITHOUT BEHAVIORAL DISTURBANCE Status: Chronic Qualifiers: Dementia type: unspecified type Dementia behavioral disturbance: without behavioral disturbance Qualified Code(s): F03.90 - Unspecified dementia without behavioral disturbance (8) GERD (gastroesophageal reflux disease) Code(s): K21.9 - GASTRO-ESOPHAGEAL REFLUX DISEASE WITHOUT ESOPHAGITIS Status: Chronic Qualifiers: Esophagitis presence: esophagitis presence not specified Qualified Code(s) : K21.9 - Gastro-esophageal reflux disease without esophagitis (9) H/O ulcerative colitis Code(s): Z87.19 - PERSONAL HISTORY OF OTHER DISEASES OF THE DIGESTIVE SYSTEM Status: Chronic (10) Hypertension Code(s): I10 - ESSENTIAL (PRIMARY) HYPERTENSION Status: Chronic Qualifiers: Hypertension type: essential hypertension Qualified Code(s): I10 - Essential (primary) hypertension (11) Osteoarthritis Code(s): M19.90 - UNSPECIFIED OSTEOARTHRITIS, UNSPECIFIED SITE Status: Chronic Qualifiers: Osteoarthritis location: multiple joints - Plan * .
[2018-03-07] MEDS ORDERED: Magnesium 2 GM/NS 0.9% 100 ML 3 GM in Premix Bag 1 BAG IVPB SCH (14:15)
[2018-03-07] MEDS ORDERED: Magnesium Sulfate 3 GM in Sodium Chloride 0.9% 100 ML IVPB SCH (14:30)
[2018-03-08 04:52] LABS: #Basophils 0.1 thou/uL (0.0-0.2); #Eosinphils 0.4 thou/uL (0.0-0.7); #Lymphocytes 4.9 thou/uL (1.20-3.40); #Monocytes 1.2 thou/uL (0.11-0.59); #Neutrophils 5.9 thou/uL (1.40-6.50); %Basophils 0.5 % (0.0-1.0); %Eosinophils 2.9 % (0.0-10.0); %Lymphocytes 39.6 % (21.0-51.0); %Monocytes 9.8 % (0.0-10.0); %Neutrophils 47.3 % (42.0-75.0); Hemoglobin 10.6 g/dL (12.0-16.0); Mean Corpuscular HGB CONC 32.2 g/dL (32.0-36.0); Mean Corpuscular Hemoglobin 30.3 pg (27.0-31.0); Mean Corpuscular Volume 94.1 fl (81.0-99.0); Mean Platelet Volume 7.8 fL (7.4-10.4); Platelet Count 266 thou/uL (130-400); Platelet Count 268 thou/uL (130-400); RBC Distribution Width 14.3 % (11.5-14.5); Red Blood Cell (RBC) Count 3.51 mill/uL (4.20-5.40); White Blood Cell (WBC) Count 12.4 thou/uL (4.8-10.8)
[2018-03-08 05:14] LABS: Anion Gap 10 mmol/L (10-20); BUN (Urea Nitrogen) 18 mg/dL (9.8-20.1); Calc. Creatinine Clearance 30 mL/min (70-130); Carbon Dioxide 27 mmol/L (23-31); Chloride 104 mmol/L (98-107); Estimated GFR-MDRD 36; Glucose 99 mg/dL (83-110); Magnesium 2.1 mg/dL (1.6-2.6); Potassium 4.1 mmol/L (3.5-5.1); Sodium 137 mmol/L (136-145)
[2018-03-08] MEDS: Cipro 250 MG TAB PO SCH ×2 (05:40→20:29)
[2018-03-08] MEDS: Apixaban 5 MG TAB PO SCH ×2 (08:21→20:28)
[2018-03-08] MEDS: Furosemide 20 MG TAB PO SCH (08:21)
[2018-03-08] MEDS: metroNIDAZOLE 500 MG TAB PO SCH ×3 (08:21→20:29)
[2018-03-08] MEDS: Spironolactone 25 MG TAB PO SCH (08:21)
[2018-03-08] MEDS: Saccharomyces boulardii 250 MG CAP PO SCH (08:21)
[2018-03-08] MEDS: Metoprolol Tartrate 25 MG TAB PO SCH ×2 (08:22→20:28)
[2018-03-08] MEDS: predniSONE 5 MG TAB PO SCH (08:22)
--- NOTE | 2018-03-08 11:36 | PDOC.PN ---
- Subjective Encounter Start Date: 03/08/18 Encounter Start Time: 11:20 Subjective: No complaints. Patient alert but not oriented due to dementia. No -: family in the room. - Objective Resuscitation Status: Resuscitation Status FULL:Full Resuscitation MAR Reviewed: Yes Vital Signs & Weight: Vital Signs (12 hours) Temp Pulse Resp BP Pulse Ox 03/08/18 11:04 97.8 F 63 18 106/65 96 03/08/18 08:00 97.6 F 77 18 96 03/08/18 07:07 97.6 F 77 18 115/63 96 Weight Admit Weight 158 lb 3 oz Weight 149 lb I&O: 03/07/18 03/08/18 03/09/18 06:59 06:59 06:59 Intake Total 120 110 Balance 120 110 Result Diagrams: 03/08/18 03:38 03/08/18 03:38 Phys Exam - Physical Examination Constitutional: NAD HEENT: moist MMs Respiratory: no wheezing, no rales, no rhonchi Cardiovascular: RRR Gastrointestinal: soft, positive bowel sounds mild TTP RUQ/CATERINA Neurological: non-focal, moves all 4 limbs Psychiatric: normal affect Dx/Plan (1) Multifocal atrial tachycardia Code(s): I47.1 - SUPRAVENTRICULAR TACHYCARDIA Status: Resolved Comment: ANVRT per Dr phillips. S/P study and ablation, BBMelissa, stable. no evidenc eof recurrence. to rehab at SNF (denied IPR by insurnace despite [id number] review). awaiting son to make a decision regarding facility (2) Abscess of sigmoid colon Code(s): K63.0 - ABSCESS OF INTESTINE Status: Acute Comment: with diverticulitis. CCM with antibiotics, CT 02/18 and repeat 02/22 with abscess 1.7cm. too soon to repeat would plan on 4 weeks abx with repeat imaging then, and continue reimaging q 2 weeks until compeltely resolved then stop abx (3) Moderate protein-calorie malnutrition Code(s): E44.0 - MODERATE PROTEIN-CALORIE MALNUTRITION Status: Chronic Comment: supplement, ask nutrition to see (4) Abdominal pain Code(s): R10.9 - UNSPECIFIED ABDOMINAL PAIN Status: Resolved Qualifiers: Abdominal location: epigastric Qualified Code(s): R10.13 - Epigastric pain (5) CKD (chronic kidney disease), stage III Status: Chronic (6) DVT (deep venous thrombosis) Code(s): I82.409 - ACUTE EMBOLISM AND THOMBOS UNSP DEEP VN UNSP LOWER EXTREMITY Status: Chronic Qualifiers: DVT location: lower extremity Affected thrombotic vein of extremity: femoral Chronicity: acute Laterality: right Qualified Code(s): I82.411 - Acute embolism and thrombosis of right femoral vein Comment: on eliquis, CTA negative for PE, no afib. eliquis stopped. cards restarted due to history of past afib (7) Dementia Code(s): F03.90 - UNSPECIFIED DEMENTIA WITHOUT BEHAVIORAL DISTURBANCE Status: Chronic Qualifiers: Dementia type: unspecified type Dementia behavioral disturbance: without behavioral disturbance Qualified Code(s): F03.90 - Unspecified dementia without behavioral disturbance (8) GERD (gastroesophageal reflux disease) Code(s): K21.9 - GASTRO-ESOPHAGEAL REFLUX DISEASE WITHOUT ESOPHAGITIS Status: Chronic Qualifiers: Esophagitis presence: esophagitis presence not specified Qualified Code(s) : K21.9 - Gastro-esophageal reflux disease without esophagitis (9) H/O ulcerative colitis Code(s): Z87.19 - PERSONAL HISTORY OF OTHER DISEASES OF THE DIGESTIVE SYSTEM Status: Chronic (10) Hypertension Code(s): I10 - ESSENTIAL (PRIMARY) HYPERTENSION Status: Chronic Qualifiers: Hypertension type: essential hypertension Qualified Code(s): I10 - Essential (primary) hypertension (11) Osteoarthritis Code(s): M19.90 - UNSPECIFIED OSTEOARTHRITIS, UNSPECIFIED SITE Status: Chronic Qualifiers: Osteoarthritis location: multiple joints - Plan cont current plan of care, continue antibiotics Rehab denied by insurance. Family will need to decide on home vs. SNF, -: d/c when arranged. * . - Discharge Day Encounter end time: 11:30
[2018-03-08] MEDS ORDERED: Sodium Chloride 0.9% 500 ML IV SCH (12:00)
[2018-03-09] MEDS: Cipro 250 MG TAB PO SCH ×2 (06:34→20:12)
[2018-03-09] MEDS: Saccharomyces boulardii 250 MG CAP PO SCH (08:49)
[2018-03-09] MEDS: Apixaban 5 MG TAB PO SCH ×2 (08:49→20:12)
[2018-03-09] MEDS: Spironolactone 25 MG TAB PO SCH (08:49)
[2018-03-09] MEDS: predniSONE 5 MG TAB PO SCH (08:49)
[2018-03-09] MEDS: Furosemide 20 MG TAB PO SCH (08:49)
[2018-03-09] MEDS: Metoprolol Tartrate 25 MG TAB PO SCH ×2 (08:49→20:12)
[2018-03-09] MEDS: metroNIDAZOLE 500 MG TAB PO SCH ×3 (08:49→20:12)
--- NOTE | 2018-03-09 09:52 | PDOC.PN ---
- Subjective Encounter Start Date: 03/09/18 Encounter Start Time: 12:00 Subjective: Patient unchanged. No complaints. Pleasantly demented. - Objective Resuscitation Status: Resuscitation Status FULL:Full Resuscitation MAR Reviewed: Yes Vital Signs & Weight: Vital Signs (12 hours) Temp Pulse Resp BP BP Pulse Ox 03/09/18 07:36 98.1 F 69 16 96 03/09/18 07:27 98.1 F 69 16 112/71 96 03/09/18 04:00 97.6 F 77 20 129/83 95 03/09/18 00:00 97.7 F 68 20 120/87 93 L Weight Admit Weight 158 lb 3 oz Weight 151 lb 4.8 oz I&O: 03/08/18 03/09/18 03/10/18 06:59 06:59 06:59 Intake Total 110 500 Output Total 1 Balance 110 499 Result Diagrams: 03/08/18 03:38 03/08/18 03:38 Phys Exam - Physical Examination Constitutional: NAD HEENT: moist MMs Respiratory: no wheezing, no rales, no rhonchi Cardiovascular: no significant murmur, irregular Gastrointestinal: soft, positive bowel sounds Neurological: non-focal, moves all 4 limbs Deviation from normal: flat affect, oriented to person only Dx/Plan (1) Multifocal atrial tachycardia Code(s): I47.1 - SUPRAVENTRICULAR TACHYCARDIA Status: Resolved Comment: ANVRT per Dr phillips. S/P study and ablation, BBLocker, stable. no evidenc of recurrence. to rehab at SNF (denied IPR by insurnace despite [id number] review). awaiting son to make a decision regarding facility, currently he is contesting with the insurance company (2) Abscess of sigmoid colon Code(s): K63.0 - ABSCESS OF INTESTINE Status: Acute Comment: with diverticulitis. CCM with antibiotics, CT 02/18 and repeat 02/22 with abscess 1.7cm. too soon to repeat would plan on 4 weeks abx with repeat imaging then, and continue reimaging q 2 weeks until compeltely resolved then stop abx (3) Moderate protein-calorie malnutrition Code(s): E44.0 - MODERATE PROTEIN-CALORIE MALNUTRITION Status: Chronic Comment: supplement, ask nutrition to see (4) Abdominal pain Code(s): R10.9 - UNSPECIFIED ABDOMINAL PAIN Status: Resolved Qualifiers: Abdominal location: epigastric Qualified Code(s): R10.13 - Epigastric pain (5) CKD (chronic kidney disease), stage III Status: Chronic (6) DVT (deep venous thrombosis) Code(s): I82.409 - ACUTE EMBOLISM AND THOMBOS UNSP DEEP VN UNSP LOWER EXTREMITY Status: Chronic Qualifiers: DVT location: lower extremity Affected thrombotic vein of extremity: femoral Chronicity: acute Laterality: right Qualified Code(s): I82.411 - Acute embolism and thrombosis of right femoral vein Comment: on eliquis, CTA negative for PE, no afib. eliquis stopped. cards restarted due to history of past afib (7) Dementia Code(s): F03.90 - UNSPECIFIED DEMENTIA WITHOUT BEHAVIORAL DISTURBANCE Status: Chronic Qualifiers: Dementia type: unspecified type Dementia behavioral disturbance: without behavioral disturbance Qualified Code(s): F03.90 - Unspecified dementia without behavioral disturbance (8) GERD (gastroesophageal reflux disease) Code(s): K21.9 - GASTRO-ESOPHAGEAL REFLUX DISEASE WITHOUT ESOPHAGITIS Status: Chronic Qualifiers: Esophagitis presence: esophagitis presence not specified Qualified Code(s) : K21.9 - Gastro-esophageal reflux disease without esophagitis (9) H/O ulcerative colitis Code(s): Z87.19 - PERSONAL HISTORY OF OTHER DISEASES OF THE DIGESTIVE SYSTEM Status: Chronic (10) Hypertension Code(s): I10 - ESSENTIAL (PRIMARY) HYPERTENSION Status: Chronic Qualifiers: Hypertension type: essential hypertension Qualified Code(s): I10 - Essential (primary) hypertension (11) Osteoarthritis Code(s): M19.90 - UNSPECIFIED OSTEOARTHRITIS, UNSPECIFIED SITE Status: Chronic Qualifiers: Osteoarthritis location: multiple joints - Plan cont current plan of care, continue antibiotics, PT/OT awaiting placement * . - Discharge Day Encounter end time: 12:30
[2018-03-09 11:22] VITALS: BMI 25.2
[2018-03-10 02:44] LABS: Hemoglobin 10.7 g/dL (12.0-16.0); Platelet Count 273 thou/uL (130-400)
[2018-03-10] MEDS: Cipro 250 MG TAB PO SCH ×2 (05:59→21:25)
[2018-03-10] MEDS: Furosemide 20 MG TAB PO SCH (08:06)
[2018-03-10] MEDS: metroNIDAZOLE 500 MG TAB PO SCH ×3 (08:06→21:25)
[2018-03-10] MEDS: Spironolactone 25 MG TAB PO SCH (08:06)
[2018-03-10] MEDS: Apixaban 5 MG TAB PO SCH ×2 (08:06→21:25)
[2018-03-10] MEDS: Metoprolol Tartrate 25 MG TAB PO SCH ×2 (08:06→21:26)
[2018-03-10] MEDS: Saccharomyces boulardii 250 MG CAP PO SCH (08:06)
[2018-03-10] MEDS: predniSONE 5 MG TAB PO SCH (08:06)
[2018-03-10 08:52] LABS: Hemoglobin 10.8 g/dL (12.0-16.0); Mean Corpuscular HGB CONC 31.9 g/dL (32.0-36.0); Mean Corpuscular Hemoglobin 30.2 pg (27.0-31.0); Mean Corpuscular Volume 94.8 fl (81.0-99.0); Mean Platelet Volume 7.9 fL (7.4-10.4); Platelet Count 279 thou/uL (130-400); RBC Distribution Width 14.5 % (11.5-14.5); Red Blood Cell (RBC) Count 3.58 mill/uL (4.20-5.40); White Blood Cell (WBC) Count 11.5 thou/uL (4.8-10.8)
[2018-03-10 09:05] LABS: Anion Gap 9 mmol/L (10-20); BUN (Urea Nitrogen) 18 mg/dL (9.8-20.1); Calc. Creatinine Clearance 35 mL/min (70-130); Calcium 8.1 mg/dL (7.8-10.44); Carbon Dioxide 26 mmol/L (23-31); Chloride 104 mmol/L (98-107); Estimated GFR-MDRD 44; Glucose 144 mg/dL (83-110); Potassium 3.5 mmol/L (3.5-5.1); Sodium 135 mmol/L (136-145)
[2018-03-10 09:32] LABS: Band 1 % (5-11); Lymphocytes 50 % (21-51); MDiff Complete? YES; Monocytes 5 % (0-10); Neutrophil 44 % (42-75); Polychromasia SLIGHT = 2-3 cells (100X) (0-2/hpf)
[2018-03-10] MEDS ORDERED: Spironolactone 25 MG TAB PO SCH (14:00)
[2018-03-10] MEDS ORDERED: Furosemide 20 MG TAB PO PRN (14:00)
--- NOTE | 2018-03-10 14:03 | PDOC.PN ---
- Subjective Encounter Start Date: 03/10/18 Encounter Start Time: 14:01 Patient seen and examined, son at bedside, states patient would like a regular diet and also that she has been feeling a bit weak, no other issues, all questions answered. - Objective Resuscitation Status: Resuscitation Status FULL:Full Resuscitation Vital Signs & Weight: Vital Signs (12 hours) Temp Pulse Resp BP Pulse Ox 03/10/18 11:40 98.6 F 66 18 98/63 94 L 03/10/18 08:00 97.5 F L 74 18 03/10/18 07:26 97.5 F L 74 18 113/51 L 94 L 03/10/18 05:54 72 102/65 03/10/18 04:00 97.5 F L 76 20 95 Weight Admit Weight 158 lb 3 oz Weight 149 lb 9.6 oz I&O: 03/09/18 03/10/18 03/11/18 06:59 06:59 06:59 Intake Total 500 175 Output Total 1 Balance 499 175 Result Diagrams: 03/10/18 08:31 03/10/18 08:31 Phys Exam - Physical Examination Constitutional: NAD HEENT: PERRLA, moist MMs, sclera anicteric Neck: no nodes, no JVD, supple Respiratory: no wheezing, no rales, no rhonchi Cardiovascular: RRR, no rub 2/6 VENANCIO Gastrointestinal: soft, non-tender, no distention, positive bowel sounds Musculoskeletal: no edema, pulses present Neurological: non-focal, normal sensation Psychiatric: normal affect, A&O x 3 Skin: no rash, normal turgor Dx/Plan (1) Moderate protein-calorie malnutrition Code(s): E44.0 - MODERATE PROTEIN-CALORIE MALNUTRITION Status: Chronic Comment: supplement, ask nutrition to see (2) Multifocal atrial tachycardia Code(s): I47.1 - SUPRAVENTRICULAR TACHYCARDIA Status: Resolved Comment: ANVRT per Dr phillips. S/P study and ablation, BBLocker, stable. no evidenc of recurrence. to rehab at SNF (denied IPR by insurnace despite [id number] review). awaiting son to make a decision regarding facility, currently he is contesting with the insurance company (3) GERD (gastroesophageal reflux disease) Code(s): K21.9 - GASTRO-ESOPHAGEAL REFLUX DISEASE WITHOUT ESOPHAGITIS Status: Chronic Qualifiers: Esophagitis presence: esophagitis presence not specified Qualified Code(s) : K21.9 - Gastro-esophageal reflux disease without esophagitis (4) Hypertension Code(s): I10 - ESSENTIAL (PRIMARY) HYPERTENSION Status: Chronic Qualifiers: Hypertension type: essential hypertension Qualified Code(s): I10 - Essential (primary) hypertension (5) Osteoarthritis Code(s): M19.90 - UNSPECIFIED OSTEOARTHRITIS, UNSPECIFIED SITE Status: Chronic Qualifiers: Osteoarthritis location: multiple joints (6) Abdominal pain Code(s): R10.9 - UNSPECIFIED ABDOMINAL PAIN Status: Resolved Qualifiers: Abdominal location: epigastric Qualified Code(s): R10.13 - Epigastric pain - Plan * consult to PT * decrease aldacton and metoprolol to lowest dose, change lasix to PRN * change to regular diet * target SBP 120-140mmHg, currently SBP ranging in the upper 90s, this may be causing her weakness * no other changes in plan for now * pending placement to rehab * case and plan d/w patient's son and patient at [facility], they understand and agree with this plan
[2018-03-11 04:45] LABS: Anion Gap 10 mmol/L (10-20); BUN (Urea Nitrogen) 18 mg/dL (9.8-20.1); Calc. Creatinine Clearance 34 mL/min (70-130); Calcium 8.2 mg/dL (7.8-10.44); Carbon Dioxide 31 mmol/L (23-31); Chloride 102 mmol/L (98-107); Estimated GFR-MDRD 43; Glucose 116 mg/dL (83-110); Potassium 3.7 mmol/L (3.5-5.1); Sodium 139 mmol/L (136-145)
[2018-03-11 05:38] LABS: Band 5 % (5-11); Eosinophils 2 % (0-10); Hemoglobin 10.9 g/dL (12.0-16.0); Lymphocytes 29 % (21-51); MDiff Complete? YES; Mean Corpuscular HGB CONC 33.6 g/dL (32.0-36.0); Mean Corpuscular Hemoglobin 31.7 pg (27.0-31.0); Mean Corpuscular Volume 94.3 fl (81.0-99.0); Metamyelocyte 3 % (0-0); Monocytes 7 % (0-10); Neutrophil 52 % (42-75); PLT Morphology Comment Appears Adequate; Platelet Count 269 thou/uL (130-400); RBC Distribution Width 14.5 % (11.5-14.5); Reactive Lymphocytes 1 % (0-10); Red Blood Cell (RBC) Count 3.43 mill/uL (4.20-5.40)
[2018-03-11] MEDS: Apixaban 5 MG TAB PO SCH (08:05)
[2018-03-11] MEDS: predniSONE 5 MG TAB PO SCH (08:05)
[2018-03-11] MEDS: Saccharomyces boulardii 250 MG CAP PO SCH (08:05)
[2018-03-11] MEDS: Metoprolol Tartrate 25 MG TAB PO SCH (08:05)
[2018-03-11 08:10] VITALS: BP 111/65; TEMP 98.1
--- NOTE | 2018-03-11 13:19 | PDOC.EVN ---
Event Note - Event Note Event Note: DC SUMMARY ADDENDED, original dictated by Dr. George on 03/03/2018, patient spent time waiting for insurance approval, DC summary dictated for addendeum #[id number]
--- NOTE | 2018-03-11 22:51 | DIS ---
DATE OF ADMISSION: 02/28/2018 DATE OF DISCHARGE: 03/11/2018 Please view the discharge summary dictated by Dr. George. Please change the discharge date on that s denilsony to 03/11/2018. The patient basically spent the duration of the time in the waiting for insurance approval, otherwise no changes to the discharge summary dictated by Dr. George on 03/03/2018. The patient is to be disc harged to rehab today as she has been accepted. Case and plan discussed with the patient and son at length that the son understands and agrees with t his plan.
== END 2018-03-11 15:31 | DRG 274 ==
LOC: ERS 12:19 → 2NO 14:43 → T4-A 03-04 11:16
PROVIDERS: ADMIT Internal Medicine; ATTEND Internal Medicine
PROC: 02583ZZ Destruction of Conduction Mechanism, Percutaneous Approach (ICD-10-PCS; principal; 2018-03-02)
PROC: 02K83ZZ Map Conduction Mechanism, Percutaneous Approach (ICD-10-PCS; 2018-03-02)
PROC: 4A023FZ Measurement of Cardiac Rhythm, Percutaneous Approach (ICD-10-PCS; 2018-03-02)
PROC: 4A0234Z Measurement of Cardiac Electrical Activity, Percutaneous Approach (ICD-10-PCS; 2018-03-02)
DX: I47.1 Supraventricular tachycardia (principal); E44.0 Moderate protein-calorie malnutrition; I82.411 Acute embolism and thrombosis of right femoral vein; K57.20 Diverticulitis of large intestine with perforation and abscess without bleeding; I13.0 Hypertensive heart and chronic kidney disease with heart failure and stage 1 through stage 4 chronic kidney disease, or unspecified chronic kidney disease; I50.32 Chronic diastolic (congestive) heart failure; I48.0 Paroxysmal atrial fibrillation; E87.6 Hypokalemia; N18.3 Chronic kidney disease, stage 3 (moderate); K21.9 Gastro-esophageal reflux disease without esophagitis; G30.9 Alzheimer's disease, unspecified; F02.80 Dementia in other diseases classified elsewhere, unspecified severity, without behavioral disturbance, psychotic disturbance, mood disturbance, and anxiety; M19.90 Unspecified osteoarthritis, unspecified site; Z88.0 Allergy status to penicillin; Z86.79 Personal history of other diseases of the circulatory system; Z87.19 Personal history of other diseases of the digestive system; Z79.01 Long term (current) use of anticoagulants; Z79.52 Long term (current) use of systemic steroids
CPT/HCPCS: 36415; 51701; 71045; 71275; 76942; 80048; 80053; 80162; 81003; 82550; 82553; 82565; 83735; 83880; 84100; 84439; 84443; 84481; 84484; 85007; 85014; 85018; 85025; 85027; 85049; 85610; 85730; 93005; 93306; 93613; 93621; 93623; 93653; 93970; 96361; 96365; 96366; 99292; A4216; A4353; C1730; C1769; G8978-GP-CM; G8979-GP-CL; G8987-GO-CM; G8988-GO-CJ; J1644; J1720; J1940; J2001; J2250; J2704; J3010; J3475; J7050; J7506

== ENCOUNTER 2018-04-13 10:49 | Outpatient (CLI) | payer MEDICARE | END 2018-04-13 10:50 | disposition home or self-care (01) | LOC: BICCT 10:49 | PROVIDERS: ATTEND Internal Medicine Gastroenterology | DX: K51.90 Ulcerative colitis, unspecified, without complications (principal); K57.20 Diverticulitis of large intestine with perforation and abscess without bleeding; I82.409 Acute embolism and thrombosis of unspecified deep veins of unspecified lower extremity; R00.0 Tachycardia, unspecified | CPT/HCPCS: 74177 ==